=== PATIENT | male | born 1960 | race Caucasian/White ===

== ENCOUNTER 2017-09-13 16:12 | Emergency (ER) | payer MEDICAID ==
[2017-09-13] MEDS: ONDANSETRON 4 MG INJ IV ×3 (17:07→18:50)
[2017-09-13] MEDS: SOD CHLORIDE 0.9% 500 ML IV (17:08)
[2017-09-13 17:10] LABS: ADD MAN DIFF? NO
[2017-09-13 17:32] LABS: ALANINE AMINOTRANSFERASE 48 IU/L (13-69); ALBUMIN 2.8 g/dl (3.3-4.9); ALKALINE PHOSPHATASE 178 IU/L (42-121); ANION GAP 18 (8-16); ASPARTATE AMINO TRANSFERASE 60 IU/L (15-46); BILIRUBIN,INDIRECT 1.1 mg/dl (0-1.1); BILIRUBIN,TOTAL 1.1 mg/dl (0.2-1.3); BLOOD UREA NITROGEN 13 mg/dl (7-20); CARBON DIOXIDE 22 mmol/L (21-31); CHLORIDE 96 mmol/L (97-110); CREATININE 0.82 mg/dl (0.61-1.24); GLUCOSE 347 mg/dl (70-220); LIPASE 22 U/L (23-300); POTASSIUM 3.6 mmol/L (3.5-5.1); SODIUM 132 mmol/L (135-144); TOTAL PROTEIN 6.8 g/dl (6.1-8.1)
[2017-09-13 17:50] LABS: BASOPHIL # 0.1 10^3/ul (0.0-0.1); BASOPHILS % 1.1 % (0.0-2.0); EOSINOPHILS # 0.2 10^3/ul (0.0-0.5); EOSINOPHILS % 2.3 % (0.0-7.0); HEMATOCRIT 34.7 % (42.0-52.0); HEMOGLOBIN 12.2 g/dl (14.0-18.0); LYMPHOCYTES # 0.7 10^3/ul (0.8-2.9); LYMPHOCYTES % 11.1 % (15.0-51.0); MEAN CORPUSCULAR HEMOGLOBIN 33.3 pg (29.0-33.0); MEAN CORPUSCULAR HGB CONC 35.2 g/dl (32.0-37.0); MEAN CORPUSCULAR VOLUME 94.8 fl (82.0-101.0); MONOCYTE # 0.9 10^3/ul (0.3-0.9); MONOCYTES % 13.4 % (0.0-11.0); NEUTROPHIL # 4.7 10^3/ul (1.6-7.5); NEUTROPHILS % 71.9 % (39.0-77.0); PLATELET COUNT 124 10^3/UL (140-415); RED BLOOD COUNT 3.66 10^6/ul (4.70-6.10); RED CELL DISTRIBUTION WIDTH 15.7 % (11.5-14.5)
[2017-09-13 17:50] LABS: WHITE BLOOD COUNT 6.5 10^3/ul (4.8-10.8)
[2017-09-13 17:53] LABS: TROPONIN-I < 0.012 ng/ml (0.00-0.12)
[2017-09-13] MEDS: HYDROmorphONE 1 MG/ML SYG IV ×2 (18:29→19:50)
== END 2017-09-13 20:12 | disposition home or self-care (01) ==
LOC: E/R 16:12
DX: R11.2 Nausea with vomiting, unspecified (principal); Z79.4 Long term (current) use of insulin; Z98.61 Coronary angioplasty status
CPT/HCPCS: 36415; 74176; 80053; 83690; 84484; 85025; 96374; 96375; 96376; 99285-25

== ENCOUNTER 2017-11-05 10:12 | Inpatient (IN) | payer MEDICAID ==
[2017-11-05] MEDS: SOD CHLORIDE 0.9% 500 ML IV (12:25)
[2017-11-05] MEDS: ONDANSETRON 4 MG INJ IV (12:25)
[2017-11-05 12:50] LABS: ADD MAN DIFF? NO
[2017-11-05 12:54] LABS: BASOPHIL # 0.1 10^3/ul (0.0-0.1); BASOPHILS % 0.7 % (0.0-2.0); EOSINOPHILS # 0.1 10^3/ul (0.0-0.5); HEMATOCRIT 37.8 % (42.0-52.0); HEMOGLOBIN 13.2 g/dl (14.0-18.0); LYMPHOCYTES # 0.6 10^3/ul (0.8-2.9); LYMPHOCYTES % 7.7 % (15.0-51.0); MEAN CORPUSCULAR HEMOGLOBIN 33.1 pg (29.0-33.0); MEAN CORPUSCULAR HGB CONC 34.9 g/dl (32.0-37.0); MEAN CORPUSCULAR VOLUME 94.7 fl (82.0-101.0); MEAN PLATELET VOLUME 10.9 fl (7.4-10.4); MONOCYTE # 0.9 10^3/ul (0.3-0.9); MONOCYTES % 11.3 % (0.0-11.0); NEUTROPHIL # 6.5 10^3/ul (1.6-7.5); NEUTROPHILS % 78.6 % (39.0-77.0); PLATELET COUNT 144 10^3/UL (140-415); RED BLOOD COUNT 3.99 10^6/ul (4.70-6.10); RED CELL DISTRIBUTION WIDTH 14.3 % (11.5-14.5)
[2017-11-05 12:54] LABS: WHITE BLOOD COUNT 8.2 10^3/ul (4.8-10.8)
[2017-11-05 13:10] LABS: ALANINE AMINOTRANSFERASE 77 IU/L (13-69); ALBUMIN 3.3 g/dl (3.3-4.9); ALBUMIN/GLOBULIN RATIO 0.76; ALKALINE PHOSPHATASE 231 IU/L (42-121); ANION GAP 17 (8-16); ASPARTATE AMINO TRANSFERASE 124 IU/L (15-46); BILIRUBIN,TOTAL 2.3 mg/dl (0.2-1.3); BLOOD UREA NITROGEN 18 mg/dl (7-20); CARBON DIOXIDE 25 mmol/L (21-31); CHLORIDE 92 mmol/L (97-110); CREATININE 0.95 mg/dl (0.61-1.24); LIPASE 19 U/L (23-300); SODIUM 127 mmol/L (135-144); TOTAL PROTEIN 7.6 g/dl (6.1-8.1)
[2017-11-05 13:11] LABS: POTASSIUM 6.8 mmol/L (3.5-5.1)
[2017-11-05 13:12] LABS: GLUCOSE 441 mg/dl (70-220)
[2017-11-05 13:25] LABS: TROPONIN-I < 0.012 ng/ml (0.00-0.12)
[2017-11-05] MEDS ORDERED: DEXTROSE 50% 50 ML SYRINGE IV ×3 (13:30→15:00)
[2017-11-05] MEDS: morphine 4 MG/ML VIAL IV (13:38)
[2017-11-05 13:39] LABS: AMMONIA 81 umol/l (9-30)
[2017-11-05] MEDS: INSULIN REGULAR, HUMAN 100 UNIT/1 ML 3ML VIAL IVP (13:45)
[2017-11-05] MEDS: NA BICARBONATE 8.4% 50 ML SYG IV (13:48)
[2017-11-05] MEDS: NA POLYST SULFON 15 GM/60 ML BTL PO (13:51)
[2017-11-05] MEDS ORDERED: ONDANSETRON 4 MG INJ IV (14:00)
[2017-11-05] MEDS ORDERED: ACETAMINOPHEN 325 MG TAB PO ×2 (14:00→15:00)
[2017-11-05] MEDS: ALBUTEROL 0.5% (NEB) 2.5 MG/0.5 ML AMP INH (14:06)
[2017-11-05] MEDS ORDERED: GLUCOSE GEL 15 GRAM TUBE BUCCAL (15:00)
[2017-11-05] MEDS ORDERED: NACL 0.9% 3 ML SYG IV (15:00)
[2017-11-05] MEDS ORDERED: GLUCOSE GEL 15 GRAM TUBE PO ×2 (15:00)
[2017-11-05] MEDS: METOCLOPRAMIDE 5 MG TAB PO ×3 (15:00→20:37)
[2017-11-05] MEDS: traMADol 50 MG TAB PO ×2 (15:00→22:00)
[2017-11-05] MEDS ORDERED: DOCUSATE SODIUM 100 MG CAP PO (15:00)
[2017-11-05] MEDS ORDERED: MAGNESIUM HYDROXIDE 30ML CUP PO (15:00)
[2017-11-05] MEDS ORDERED: GLUCAGON 1 MG INJ IM (15:00)
[2017-11-05 15:43] LABS: HEMOGLOBIN A1C 8.1 % (0-5.9)
[2017-11-05 16:16] LABS: ALANINE AMINOTRANSFERASE 71 IU/L (13-69); ALBUMIN 2.6 g/dl (3.3-4.9); ALBUMIN/GLOBULIN RATIO 0.68; ALKALINE PHOSPHATASE 217 IU/L (42-121); ANION GAP 16 (8-16); ASPARTATE AMINO TRANSFERASE 93 IU/L (15-46); BILIRUBIN,INDIRECT 1.8 mg/dl (0-1.1); BILIRUBIN,TOTAL 1.8 mg/dl (0.2-1.3); BLOOD UREA NITROGEN 16 mg/dl (7-20); CALCIUM 8.6 mg/dl (8.4-10.2); CARBON DIOXIDE 23 mmol/L (21-31); CHLORIDE 96 mmol/L (97-110); CREATININE 0.86 mg/dl (0.61-1.24); GLUCOSE 274 mg/dl (70-220); POTASSIUM 4.5 mmol/L (3.5-5.1); SODIUM 130 mmol/L (135-144); TOTAL PROTEIN 6.4 g/dl (6.1-8.1)
[2017-11-05] MEDS: DICYCLOMINE 10 MG CAP PO ×2 (17:46→21:00)
[2017-11-05] MEDS: CALCIUM ACETATE 667 MG CAP PO (18:07)
[2017-11-05] MEDS: LACTULOSE 30ML CUP PO (20:37)
[2017-11-05] MEDS: MIDODRINE 5 MG TAB PO (20:37)
[2017-11-05] MEDS: HYDROmorphONE 4 MG TAB PO (22:07)
[2017-11-05] MEDS: INSULIN GLARGINE [LANtus] 3 ML PEN SC (22:26)
[2017-11-05] MEDS: INSULIN ASPART [NOVOLOG] 3 ML PEN SC (22:27)
[2017-11-05] MEDS: LORAZEPAM 2 MG INJ IV (22:29)
[2017-11-06] MEDS: traMADol 50 MG TAB PO ×2 (06:14→13:38)
[2017-11-06] MEDS: PANTOPRAZOLE (EC) 40 MG TAB PO (06:14)
[2017-11-06 08:06] LABS: ADD MAN DIFF? NO
[2017-11-06] MEDS: LACTULOSE 30ML CUP PO ×3 (08:21→20:10)
[2017-11-06 08:22] LABS: MAGNESIUM 1.9 mg/dl (1.7-2.5)
[2017-11-06] MEDS: CLOPIDOGREL 75 MG TAB PO (08:22)
[2017-11-06] MEDS: METOCLOPRAMIDE 5 MG TAB PO ×4 (08:22→20:11)
[2017-11-06] MEDS: EZETIMIBE 10 MG TAB PO (08:22)
[2017-11-06] MEDS: CYANOCOBALAMIN 500 MCG TAB PO (08:23)
[2017-11-06] MEDS: SPIRONOLACTONE 25 MG TAB PO ×2 (08:23→20:10)
[2017-11-06] MEDS: DICYCLOMINE 10 MG CAP PO ×4 (08:23→20:10)
[2017-11-06] MEDS: CALCIUM ACETATE 667 MG CAP PO ×3 (08:23→17:28)
[2017-11-06 08:27] LABS: BASOPHIL # 0.1 10^3/ul (0.0-0.1); BASOPHILS % 1.5 % (0.0-2.0); EOSINOPHILS # 0.3 10^3/ul (0.0-0.5); EOSINOPHILS % 3.7 % (0.0-7.0); HEMATOCRIT 34.3 % (42.0-52.0); HEMOGLOBIN 12.2 g/dl (14.0-18.0); LYMPHOCYTES # 0.8 10^3/ul (0.8-2.9); LYMPHOCYTES % 12.2 % (15.0-51.0); MEAN CORPUSCULAR HEMOGLOBIN 33.7 pg (29.0-33.0); MEAN CORPUSCULAR HGB CONC 35.6 g/dl (32.0-37.0); MEAN CORPUSCULAR VOLUME 94.8 fl (82.0-101.0); MEAN PLATELET VOLUME 10.8 fl (7.4-10.4); MONOCYTES % 14.8 % (0.0-11.0); NEUTROPHIL # 4.6 10^3/ul (1.6-7.5); NEUTROPHILS % 67.2 % (39.0-77.0); PLATELET COUNT 107 10^3/UL (140-415); RED BLOOD COUNT 3.62 10^6/ul (4.70-6.10); RED CELL DISTRIBUTION WIDTH 14.1 % (11.5-14.5)
[2017-11-06 08:27] LABS: WHITE BLOOD COUNT 6.8 10^3/ul (4.8-10.8)
[2017-11-06] MEDS: INSULIN ASPART [NOVOLOG] 3 ML PEN SC ×4 (08:27→20:25)
[2017-11-06] MEDS: MIDODRINE 5 MG TAB PO ×3 (08:29→20:11)
[2017-11-06 15:44] LABS: AMMONIA 107 umol/l (9-30)
[2017-11-06] MEDS: INSULIN GLARGINE [LANtus] 3 ML PEN SC (20:25)
[2017-11-07] MEDS: traMADol 50 MG TAB PO ×3 (00:17→14:00)
[2017-11-07] MEDS: LORAZEPAM 2 MG INJ IV (03:59)
[2017-11-07] MEDS: PANTOPRAZOLE (EC) 40 MG TAB PO (06:13)
[2017-11-07 06:16] LABS: ADD MAN DIFF? NO
[2017-11-07 06:20] LABS: ABNORMAL IP MESSAGE 1; BASOPHIL # 0.1 10^3/ul (0.0-0.1); BASOPHILS % 1.1 % (0.0-2.0); EOSINOPHILS # 0.2 10^3/ul (0.0-0.5); EOSINOPHILS % 3.1 % (0.0-7.0); HEMATOCRIT 32.5 % (42.0-52.0); HEMOGLOBIN 11.7 g/dl (14.0-18.0); MEAN CORPUSCULAR HEMOGLOBIN 33.3 pg (29.0-33.0); MEAN CORPUSCULAR VOLUME 92.6 fl (82.0-101.0); MEAN PLATELET VOLUME 10.7 fl (7.4-10.4); MONOCYTE # 0.8 10^3/ul (0.3-0.9); MONOCYTES % 11.9 % (0.0-11.0); NEUTROPHIL # 4.9 10^3/ul (1.6-7.5); NEUTROPHILS % 69.3 % (39.0-77.0); PLATELET COUNT 96 10^3/UL (140-415); POSITIVE DIFF @See below; RED BLOOD COUNT 3.51 10^6/ul (4.70-6.10); RED CELL DISTRIBUTION WIDTH 13.9 % (11.5-14.5)
[2017-11-07 06:20] LABS: WHITE BLOOD COUNT 7.1 10^3/ul (4.8-10.8)
[2017-11-07 06:54] LABS: ALANINE AMINOTRANSFERASE 57 IU/L (13-69); ALBUMIN 2.6 g/dl (3.3-4.9); ALBUMIN/GLOBULIN RATIO 0.72; ALKALINE PHOSPHATASE 215 IU/L (42-121); ASPARTATE AMINO TRANSFERASE 75 IU/L (15-46); BILIRUBIN,INDIRECT 0.9 mg/dl (0-1.1); BILIRUBIN,TOTAL 0.9 mg/dl (0.2-1.3); BLOOD UREA NITROGEN 16 mg/dl (7-20); CALCIUM 8.8 mg/dl (8.4-10.2); CARBON DIOXIDE 26 mmol/L (21-31); CHLORIDE 97 mmol/L (97-110); CREATININE 0.77 mg/dl (0.61-1.24); GLUCOSE 273 mg/dl (70-220); SODIUM 130 mmol/L (135-144); TOTAL PROTEIN 6.2 g/dl (6.1-8.1)
[2017-11-07 07:50] LABS: ANION GAP 12 (8-16)
[2017-11-07 07:58] LABS: POTASSIUM 4.6 mmol/L (3.5-5.1)
[2017-11-07] MEDS: EZETIMIBE 10 MG TAB PO (08:28)
[2017-11-07] MEDS: METOCLOPRAMIDE 5 MG TAB PO ×4 (08:28→21:21)
[2017-11-07] MEDS: CLOPIDOGREL 75 MG TAB PO (08:28)
[2017-11-07] MEDS: SPIRONOLACTONE 25 MG TAB PO ×2 (08:29→21:21)
[2017-11-07] MEDS: CALCIUM ACETATE 667 MG CAP PO ×3 (08:29→17:22)
[2017-11-07] MEDS: DICYCLOMINE 10 MG CAP PO ×4 (08:29→21:20)
[2017-11-07] MEDS: CYANOCOBALAMIN 500 MCG TAB PO (08:29)
[2017-11-07] MEDS: LACTULOSE 30ML CUP PO ×3 (08:30→17:23)
[2017-11-07] MEDS: MIDODRINE 5 MG TAB PO ×3 (08:30→21:21)
[2017-11-07] MEDS: INSULIN ASPART [NOVOLOG] 3 ML PEN SC ×6 (08:40→21:39)
[2017-11-07] MEDS: RIFAXIMIN 550 MG TAB PO ×2 (12:14→21:20)
[2017-11-07] MEDS: ACETAMINOPHEN 1000MG/100ML IV 100 ML IVPB (12:18)
[2017-11-07 12:59] LABS: AMMONIA 242 umol/l (9-30)
[2017-11-07] MEDS: DEXTROSE 5%-0.45% NACL 1,000 ML IV (16:52)
[2017-11-07 19:35] LABS: ADD UMIC YES; UR ASCORBIC ACID NEGATIVE (NEGATIVE); UR BILIRUBIN (Dip) NEGATIVE (NEGATIVE); UR BLOOD (Dip) 2+ mg/dL (NEGATIVE); UR CLARITY CLEAR (CLEAR); UR COLOR YELLOW (YELLOW); UR GLUCOSE (Dip) 2+ mg/dL (NEGATIVE); UR KETONES (Dip) NEGATIVE (NEGATIVE); UR LEUKOCYTE ESTERASE (Dip) NEGATIVE Leu/ul (NEGATIVE); UR NITRITE (Dip) NEGATIVE (NEGATIVE); UR RBC 4 /HPF (0-5); UR SPECIFIC GRAVITY (Dip) 1.011 (1.003-1.030); UR TOTAL PROTEIN (Dip) NEGATIVE (NEGATIVE); UR UROBILINOGEN (Dip) 2+ mg/dL (NEGATIVE); UR WBC 2 /HPF (0-5)
[2017-11-07] MEDS: INSULIN GLARGINE [LANtus] 3 ML PEN SC (21:38)
[2017-11-08] MEDS: traMADol 50 MG TAB PO ×4 (01:19→21:48)
[2017-11-08] MEDS: LACTULOSE 30ML CUP PO ×4 (01:19→17:27)
[2017-11-08] MEDS: LORAZEPAM 2 MG INJ IV (03:32)
[2017-11-08] MEDS: PANTOPRAZOLE (EC) 40 MG TAB PO (06:33)
[2017-11-08 07:53] LABS: ADD MAN DIFF? NO
[2017-11-08 07:55] LABS: WHITE BLOOD COUNT 6.8 10^3/ul (4.8-10.8)
[2017-11-08 07:55] LABS: ABNORMAL IP MESSAGE 1; BASOPHIL # 0.1 10^3/ul (0.0-0.1); EOSINOPHILS # 0.2 10^3/ul (0.0-0.5); EOSINOPHILS % 2.5 % (0.0-7.0); HEMATOCRIT 35.1 % (42.0-52.0); HEMOGLOBIN 12.9 g/dl (14.0-18.0); LYMPHOCYTES # 0.8 10^3/ul (0.8-2.9); LYMPHOCYTES % 11.5 % (15.0-51.0); MEAN CORPUSCULAR HEMOGLOBIN 33.9 pg (29.0-33.0); MEAN CORPUSCULAR HGB CONC 36.8 g/dl (32.0-37.0); MEAN CORPUSCULAR VOLUME 92.1 fl (82.0-101.0); MEAN PLATELET VOLUME 10.9 fl (7.4-10.4); MONOCYTE # 0.7 10^3/ul (0.3-0.9); MONOCYTES % 10.5 % (0.0-11.0); NEUTROPHILS % 74.1 % (39.0-77.0); PLATELET COUNT 96 10^3/UL (140-415); POSITIVE DIFF @See below; RED BLOOD COUNT 3.81 10^6/ul (4.70-6.10); RED CELL DISTRIBUTION WIDTH 14.2 % (11.5-14.5)
[2017-11-08 08:12] LABS: AMMONIA 175 umol/l (9-30)
[2017-11-08 08:21] LABS: ANION GAP 16 (8-16); BLOOD UREA NITROGEN 11 mg/dl (7-20); CALCIUM 9.4 mg/dl (8.4-10.2); CARBON DIOXIDE 18 mmol/L (21-31); CHLORIDE 105 mmol/L (97-110); CREATININE 0.55 mg/dl (0.61-1.24); GLUCOSE 181 mg/dl (70-220); MAGNESIUM 1.7 mg/dl (1.7-2.5); PHOSPHORUS 3.2 mg/dl (2.5-4.9); POTASSIUM 4.8 mmol/L (3.5-5.1); SODIUM 134 mmol/L (135-144)
[2017-11-08] MEDS: RIFAXIMIN 550 MG TAB PO ×2 (08:47→21:01)
[2017-11-08] MEDS: CLOPIDOGREL 75 MG TAB PO (08:47)
[2017-11-08] MEDS: DICYCLOMINE 10 MG CAP PO ×4 (08:47→21:04)
[2017-11-08] MEDS: EZETIMIBE 10 MG TAB PO (08:47)
[2017-11-08] MEDS: METOCLOPRAMIDE 5 MG TAB PO ×4 (08:48→21:01)
[2017-11-08] MEDS: SPIRONOLACTONE 25 MG TAB PO ×2 (08:48→21:00)
[2017-11-08] MEDS: MIDODRINE 5 MG TAB PO ×3 (08:48→21:01)
[2017-11-08] MEDS: CALCIUM ACETATE 667 MG CAP PO ×3 (08:48→17:28)
[2017-11-08] MEDS: INSULIN ASPART [NOVOLOG] 3 ML PEN SC ×6 (09:03→21:17)
[2017-11-08] MEDS: CYANOCOBALAMIN 500 MCG TAB PO (09:04)
[2017-11-08] MEDS: DEXTROSE 5%-0.45% NACL 1,000 ML IV ×2 (12:00→17:28)
[2017-11-08] MEDS: INSULIN GLARGINE [LANtus] 3 ML PEN SC (21:16)
[2017-11-09] MEDS: LACTULOSE 30ML CUP PO ×6 (00:11→23:58)
[2017-11-09] MEDS: ONDANSETRON 4 MG INJ IV (01:02)
[2017-11-09] MEDS: OCTREOTIDE 500 MCG in DEXTROSE 5% 49 ML IV ×2 (05:33→23:14)
[2017-11-09] MEDS: PANTOPRAZOLE IV 80 MG in SOD CHLORIDE 0.9% 100 ML IVPB (05:40)
[2017-11-09] MEDS: traMADol 50 MG TAB PO ×3 (06:00→22:00)
[2017-11-09] MEDS: PANTOPRAZOLE IV 80 MG in SOD CHLORIDE 0.9% 100 ML IV ×3 (06:15→23:14)
[2017-11-09 07:01] LABS: ADD MAN DIFF? NO
[2017-11-09 07:33] LABS: BASOPHIL # 0.1 10^3/ul (0.0-0.1); BASOPHILS % 0.4 % (0.0-2.0); EOSINOPHILS % 0.3 % (0.0-7.0); HEMATOCRIT 36.9 % (42.0-52.0); HEMOGLOBIN 13.5 g/dl (14.0-18.0); LYMPHOCYTES # 0.9 10^3/ul (0.8-2.9); LYMPHOCYTES % 5.7 % (15.0-51.0); MEAN CORPUSCULAR HEMOGLOBIN 33.4 pg (29.0-33.0); MEAN CORPUSCULAR HGB CONC 36.6 g/dl (32.0-37.0); MEAN CORPUSCULAR VOLUME 91.3 fl (82.0-101.0); MEAN PLATELET VOLUME 10.9 fl (7.4-10.4); MONOCYTES % 6.3 % (0.0-11.0); NEUTROPHILS % 86.6 % (39.0-77.0); PLATELET COUNT 141 10^3/UL (140-415); RED BLOOD COUNT 4.04 10^6/ul (4.70-6.10); RED CELL DISTRIBUTION WIDTH 14.3 % (11.5-14.5)
[2017-11-09 07:35] LABS: ANION GAP 17 (8-16); BLOOD UREA NITROGEN 12 mg/dl (7-20); CARBON DIOXIDE 14 mmol/L (21-31); CHLORIDE 108 mmol/L (97-110); CREATININE 0.66 mg/dl (0.61-1.24); GLUCOSE 237 mg/dl (70-220); MAGNESIUM 1.5 mg/dl (1.7-2.5); PHOSPHORUS 2.8 mg/dl (2.5-4.9); POTASSIUM 4.8 mmol/L (3.5-5.1); SODIUM 134 mmol/L (135-144)
[2017-11-09] MEDS: CALCIUM ACETATE 667 MG CAP PO ×3 (07:55→16:59)
[2017-11-09] MEDS: INSULIN ASPART [NOVOLOG] 3 ML PEN SC ×6 (07:55→23:59)
[2017-11-09 08:39] LABS: AMMONIA 155 umol/l (9-30)
[2017-11-09] MEDS: CYANOCOBALAMIN 500 MCG TAB PO (09:00)
[2017-11-09] MEDS: SPIRONOLACTONE 25 MG TAB PO ×2 (09:00→21:00)
[2017-11-09] MEDS: METOCLOPRAMIDE 5 MG TAB PO ×4 (10:00→21:00)
[2017-11-09] MEDS: CLOPIDOGREL 75 MG TAB PO (10:00)
[2017-11-09] MEDS: EZETIMIBE 10 MG TAB PO (10:00)
[2017-11-09] MEDS: DICYCLOMINE 10 MG CAP PO ×4 (10:00→21:00)
[2017-11-09] MEDS: RIFAXIMIN 550 MG TAB PO ×2 (10:00→21:00)
[2017-11-09] MEDS: MIDODRINE 5 MG TAB PO ×3 (10:00→21:00)
[2017-11-09] MEDS ORDERED: LACTULOSE 30ML CUP PR (10:30)
[2017-11-09] MEDS: CEFTRIAXONE 1 GM/50 ML (PMX) 50 ML IVPB (13:15)
[2017-11-09] MEDS: LACTULOSE 30ML CUP PR ×3 (13:15→23:58)
[2017-11-09 13:52] LABS: HEMATOCRIT 37.9 % (42.0-52.0); HEMOGLOBIN 13.8 g/dl (14.0-18.0)
[2017-11-09] MEDS: SOD CHLORIDE 0.9% 1,000 ML IV ×2 (14:10→23:58)
[2017-11-09] MEDS: MAGNESIUM SULFATE 2 GM/50 ML 50 ML IVPB (14:10)
[2017-11-09 15:44] LABS: HEMATOCRIT 37.7 % (42.0-52.0); HEMOGLOBIN 13.6 g/dl (14.0-18.0)
[2017-11-09] MEDS: FENTAnyl 50 MCG/ML VIAL (15:53)
[2017-11-09] MEDS: PROPOFOL 20 ML (15:53)
[2017-11-09 15:56] LABS: INR 1.37; PROTIME 17.1 Sec (11.9-14.9); PT RATIO 1.3
[2017-11-09] MEDS ORDERED: ONDANSETRON 4 MG INJ IV (16:00)
[2017-11-09] MEDS ORDERED: PHYTONADIONE 10 MG/ML INJ SC (17:00)
[2017-11-09] MEDS: PHYTONADIONE 10 MG/ML INJ SC (18:50)
[2017-11-09] MEDS: INSULIN GLARGINE [LANtus] 3 ML PEN SC (21:00)
[2017-11-10 01:09] LABS: HEMATOCRIT 37.1 % (42.0-52.0); HEMOGLOBIN 13.4 g/dl (14.0-18.0)
[2017-11-10 05:25] LABS: ADD MAN DIFF? NO
[2017-11-10 05:28] LABS: WHITE BLOOD COUNT 18.8 10^3/ul (4.8-10.8)
[2017-11-10 05:28] LABS: BASOPHIL # 0.1 10^3/ul (0.0-0.1); BASOPHILS % 0.3 % (0.0-2.0); EOSINOPHILS # 0.1 10^3/ul (0.0-0.5); EOSINOPHILS % 0.5 % (0.0-7.0); HEMATOCRIT 35.4 % (42.0-52.0); HEMOGLOBIN 12.8 g/dl (14.0-18.0); LYMPHOCYTES % 5.1 % (15.0-51.0); MEAN CORPUSCULAR HEMOGLOBIN 33.2 pg (29.0-33.0); MEAN CORPUSCULAR HGB CONC 36.2 g/dl (32.0-37.0); MEAN CORPUSCULAR VOLUME 91.7 fl (82.0-101.0); MEAN PLATELET VOLUME 10.4 fl (7.4-10.4); MONOCYTE # 1.3 10^3/ul (0.3-0.9); NEUTROPHIL # 16.2 10^3/ul (1.6-7.5); NEUTROPHILS % 86.2 % (39.0-77.0); PLATELET COUNT 127 10^3/UL (140-415); RED BLOOD COUNT 3.86 10^6/ul (4.70-6.10); RED CELL DISTRIBUTION WIDTH 14.7 % (11.5-14.5)
[2017-11-10] MEDS: LACTULOSE 30ML CUP PO (05:42)
[2017-11-10] MEDS: LACTULOSE 30ML CUP PR ×3 (05:42→18:03)
[2017-11-10] MEDS: traMADol 50 MG TAB PO ×3 (05:42→22:00)
[2017-11-10 05:51] LABS: AMMONIA 110 umol/l (9-30)
[2017-11-10 05:51] LABS: ANION GAP 15 (8-16); BLOOD UREA NITROGEN 20 mg/dl (7-20); CALCIUM 9.6 mg/dl (8.4-10.2); CARBON DIOXIDE 15 mmol/L (21-31); CHLORIDE 113 mmol/L (97-110); CREATININE 0.78 mg/dl (0.61-1.24); GLUCOSE 222 mg/dl (70-220); MAGNESIUM 1.6 mg/dl (1.7-2.5); PHOSPHORUS 3.3 mg/dl (2.5-4.9); POTASSIUM 4.2 mmol/L (3.5-5.1); SODIUM 139 mmol/L (135-144)
[2017-11-10] MEDS: CALCIUM ACETATE 667 MG CAP PO ×3 (07:35→17:35)
[2017-11-10] MEDS: OCTREOTIDE 500 MCG in DEXTROSE 5% 49 ML IV (08:05)
[2017-11-10] MEDS: DICYCLOMINE 10 MG CAP PO ×4 (08:53→21:00)
[2017-11-10] MEDS: SPIRONOLACTONE 25 MG TAB PO ×2 (08:53→21:00)
[2017-11-10] MEDS: CLOPIDOGREL 75 MG TAB PO (08:53)
[2017-11-10] MEDS: RIFAXIMIN 550 MG TAB PO ×2 (08:54→21:00)
[2017-11-10] MEDS: METOCLOPRAMIDE 5 MG TAB PO ×4 (08:54→21:00)
[2017-11-10] MEDS: EZETIMIBE 10 MG TAB PO (08:54)
[2017-11-10] MEDS: CYANOCOBALAMIN 500 MCG TAB PO (08:54)
[2017-11-10] MEDS: MIDODRINE 5 MG TAB PO ×3 (08:54→21:00)
[2017-11-10] MEDS: INSULIN ASPART [NOVOLOG] 3 ML PEN SC ×3 (09:29→18:07)
[2017-11-10] MEDS: SOD CHLORIDE 0.9% 1,000 ML IV ×2 (09:38→20:08)
[2017-11-10] MEDS: PANTOPRAZOLE IV 80 MG in SOD CHLORIDE 0.9% 100 ML IV ×2 (09:38→18:04)
[2017-11-10] MEDS: MAGNESIUM SULFATE 2 GM/50 ML 50 ML IVPB (12:10)
[2017-11-10] MEDS: CEFTRIAXONE 1 GM/50 ML (PMX) 50 ML IVPB (13:18)
[2017-11-10] MEDS: morphine 2 MG INJ IV (14:08)
[2017-11-10] MEDS ORDERED: DEXTROSE 50% 50 ML SYRINGE IV ×2 (18:30)
[2017-11-10] MEDS: ACCU-CHEK XX ×5 (19:00→23:23)
[2017-11-10] MEDS: INSULIN HUMAN REGULAR 100 UNIT in SOD CHLORIDE 0.9% 99 ML IV (20:14)
[2017-11-10] MEDS: PETROLATUM 28.35 GM JELLY TOP (21:00)
[2017-11-11] MEDS: ACCU-CHEK XX ×24 (01:00→23:17)
[2017-11-11] MEDS ORDERED: ACCU-CHEK XX (02:00)
[2017-11-11] MEDS: LACTULOSE 30ML CUP PR ×5 (02:44→19:30)
[2017-11-11] MEDS: traMADol 50 MG TAB PO ×3 (03:12→22:00)
[2017-11-11] MEDS: SOD CHLORIDE 0.9% 1,000 ML IV ×2 (05:19→15:14)
[2017-11-11] MEDS: PANTOPRAZOLE IV 80 MG in SOD CHLORIDE 0.9% 100 ML IV ×2 (05:19→15:33)
[2017-11-11 05:56] LABS: ADD MAN DIFF? NO
[2017-11-11 06:02] LABS: ABNORMAL IP MESSAGE 1; BASOPHILS % 0.1 % (0.0-2.0); EOSINOPHILS # 0.1 10^3/ul (0.0-0.5); EOSINOPHILS % 0.9 % (0.0-7.0); HEMATOCRIT 30.2 % (42.0-52.0); HEMOGLOBIN 10.7 g/dl (14.0-18.0); LYMPHOCYTES # 0.7 10^3/ul (0.8-2.9); LYMPHOCYTES % 5.2 % (15.0-51.0); MEAN CORPUSCULAR HEMOGLOBIN 33.5 pg (29.0-33.0); MEAN CORPUSCULAR HGB CONC 35.4 g/dl (32.0-37.0); MEAN CORPUSCULAR VOLUME 94.7 fl (82.0-101.0); MEAN PLATELET VOLUME 10.6 fl (7.4-10.4); MONOCYTE # 1.2 10^3/ul (0.3-0.9); MONOCYTES % 8.3 % (0.0-11.0); NEUTROPHIL # 11.9 10^3/ul (1.6-7.5); NEUTROPHILS % 84.5 % (39.0-77.0); PLATELET COUNT 97 10^3/UL (140-415); POSITIVE DIFF @See below; RED BLOOD COUNT 3.19 10^6/ul (4.70-6.10); RED CELL DISTRIBUTION WIDTH 15.1 % (11.5-14.5)
[2017-11-11 06:02] LABS: WHITE BLOOD COUNT 14.1 10^3/ul (4.8-10.8)
[2017-11-11 06:29] LABS: AMMONIA 79 umol/l (9-30)
[2017-11-11 06:33] LABS: ANION GAP 11 (8-16); BLOOD UREA NITROGEN 27 mg/dl (7-20); CARBON DIOXIDE 15 mmol/L (21-31); CHLORIDE 122 mmol/L (97-110); CREATININE 0.62 mg/dl (0.61-1.24); GLUCOSE 163 mg/dl (70-220); MAGNESIUM 2.1 mg/dl (1.7-2.5); PHOSPHORUS 2.6 mg/dl (2.5-4.9); POTASSIUM 3.9 mmol/L (3.5-5.1); SODIUM 144 mmol/L (135-144)
[2017-11-11 06:34] LABS: ALANINE AMINOTRANSFERASE 44 IU/L (13-69); ALBUMIN 2.2 g/dl (3.3-4.9); ALKALINE PHOSPHATASE 157 IU/L (42-121); ASPARTATE AMINO TRANSFERASE 37 IU/L (15-46); TOTAL PROTEIN 5.5 g/dl (6.1-8.1)
[2017-11-11] MEDS: CALCIUM ACETATE 667 MG CAP PO ×3 (07:35→17:35)
[2017-11-11] MEDS: DICYCLOMINE 10 MG CAP PO ×4 (09:00→21:00)
[2017-11-11] MEDS: RIFAXIMIN 550 MG TAB PO ×2 (09:00→21:00)
[2017-11-11] MEDS: EZETIMIBE 10 MG TAB PO (09:00)
[2017-11-11] MEDS: METOCLOPRAMIDE 5 MG TAB PO ×4 (09:00→21:00)
[2017-11-11] MEDS: MIDODRINE 5 MG TAB PO ×3 (09:00→21:00)
[2017-11-11] MEDS: CYANOCOBALAMIN 500 MCG TAB PO (09:00)
[2017-11-11] MEDS: SPIRONOLACTONE 25 MG TAB PO ×2 (09:00→21:00)
[2017-11-11] MEDS: METOCLOPRAMIDE 10 MG INJ IV ×4 (09:39→21:38)
[2017-11-11 13:12] LABS: HEMATOCRIT 28.9 % (42.0-52.0); HEMOGLOBIN 10.3 g/dl (14.0-18.0)
[2017-11-11] MEDS: PETROLATUM 28.35 GM JELLY TOP ×2 (13:12→22:05)
[2017-11-11] MEDS: CEFTRIAXONE 1 GM/50 ML (PMX) 50 ML IVPB (13:31)
[2017-11-11] MEDS: DEXTROSE 5%-0.45% NACL 1,000 ML IV (16:02)
[2017-11-11] MEDS: PANTOPRAZOLE 40 MG INJ IV (17:57)
[2017-11-11 18:06] LABS: HEMATOCRIT 31.8 % (42.0-52.0); HEMOGLOBIN 11.4 g/dl (14.0-18.0)
[2017-11-11] MEDS: morphine 2 MG INJ IV (20:36)
[2017-11-11] MEDS: LORAZEPAM 2 MG INJ IV (23:52)
[2017-11-12 00:42] LABS: HEMATOCRIT 28.8 % (42.0-52.0); HEMOGLOBIN 10.1 g/dl (14.0-18.0)
[2017-11-12] MEDS: ACCU-CHEK XX ×14 (01:17→13:10)
[2017-11-12] MEDS: DEXTROSE 5%-0.45% NACL 1,000 ML IV ×2 (02:05→11:13)
[2017-11-12] MEDS: morphine 2 MG INJ IV (02:37)
[2017-11-12] MEDS: PANTOPRAZOLE 40 MG INJ IV ×2 (05:13→17:27)
[2017-11-12] MEDS: traMADol 50 MG TAB PO ×3 (05:54→22:25)
[2017-11-12 06:03] LABS: ADD MAN DIFF? NO
[2017-11-12] MEDS: LACTULOSE 30ML CUP PR ×2 (06:30)
[2017-11-12 06:35] LABS: AMMONIA 80 umol/l (9-30)
[2017-11-12 06:51] LABS: BLOOD UREA NITROGEN 19 mg/dl (7-20); CALCIUM 8.8 mg/dl (8.4-10.2); CARBON DIOXIDE 15 mmol/L (21-31); CHLORIDE 120 mmol/L (97-110); CREATININE 0.56 mg/dl (0.61-1.24); GLUCOSE 125 mg/dl (70-220); MAGNESIUM 1.8 mg/dl (1.7-2.5); PHOSPHORUS 2.4 mg/dl (2.5-4.9); SODIUM 144 mmol/L (135-144)
[2017-11-12 07:13] LABS: WHITE BLOOD COUNT 6.7 10^3/ul (4.8-10.8)
[2017-11-12 07:13] LABS: ABNORMAL IP MESSAGE 1; BASOPHILS % 0.6 % (0.0-2.0); EOSINOPHILS # 0.4 10^3/ul (0.0-0.5); EOSINOPHILS % 6.4 % (0.0-7.0); HEMATOCRIT 29.4 % (42.0-52.0); HEMOGLOBIN 10.3 g/dl (14.0-18.0); LYMPHOCYTES # 0.8 10^3/ul (0.8-2.9); LYMPHOCYTES % 11.8 % (15.0-51.0); MEAN PLATELET VOLUME 10.8 fl (7.4-10.4); MONOCYTE # 0.7 10^3/ul (0.3-0.9); MONOCYTES % 11.1 % (0.0-11.0); NEUTROPHIL # 4.7 10^3/ul (1.6-7.5); NEUTROPHILS % 69.5 % (39.0-77.0); PLATELET COUNT 80 10^3/UL (140-415); POSITIVE DIFF @See below; RED BLOOD COUNT 3.03 10^6/ul (4.70-6.10); RED CELL DISTRIBUTION WIDTH 15.1 % (11.5-14.5)
[2017-11-12 07:15] LABS: ANION GAP 13 (8-16)
[2017-11-12] MEDS: CALCIUM ACETATE 667 MG CAP PO ×3 (07:35→17:04)
[2017-11-12 07:36] LABS: POTASSIUM 3.5 mmol/L (3.5-5.1)
[2017-11-12] MEDS: DICYCLOMINE 10 MG CAP PO ×4 (08:05→20:51)
[2017-11-12] MEDS: METOCLOPRAMIDE 10 MG INJ IV ×4 (08:05→20:48)
[2017-11-12] MEDS: MIDODRINE 5 MG TAB PO ×3 (08:05→20:48)
[2017-11-12] MEDS: CYANOCOBALAMIN 500 MCG TAB PO (08:05)
[2017-11-12] MEDS: METOCLOPRAMIDE 5 MG TAB PO ×4 (08:05→21:00)
[2017-11-12] MEDS: RIFAXIMIN 550 MG TAB PO ×2 (08:05→20:48)
[2017-11-12] MEDS: SPIRONOLACTONE 25 MG TAB PO ×2 (08:05→20:48)
[2017-11-12] MEDS: PETROLATUM 28.35 GM JELLY TOP ×2 (08:06→21:03)
[2017-11-12] MEDS: EZETIMIBE 10 MG TAB PO (08:06)
[2017-11-12] MEDS: LACTULOSE 30ML CUP PO ×2 (12:02→17:27)
[2017-11-12] MEDS: CEFTRIAXONE 1 GM/50 ML (PMX) 50 ML IVPB (13:13)
[2017-11-12] MEDS ORDERED: GLUCAGON 1 MG INJ IM (14:00)
[2017-11-12] MEDS ORDERED: GLUCOSE GEL 15 GRAM TUBE PO ×2 (14:00)
[2017-11-12] MEDS ORDERED: GLUCOSE GEL 15 GRAM TUBE BUCCAL (14:00)
[2017-11-12] MEDS ORDERED: DEXTROSE 50% 50 ML SYRINGE IV ×2 (14:00)
[2017-11-12] MEDS: SOD CHLORIDE 0.45% 1,000 ML IV (14:31)
[2017-11-12] MEDS: INSULIN ASPART [NOVOLOG] 3 ML PEN SC ×3 (17:03→20:40)
[2017-11-12] MEDS: INSULIN GLARGINE [LANtus] 3 ML PEN SC (20:39)
[2017-11-13] MEDS: LACTULOSE 30ML CUP PO ×4 (00:13→17:04)
[2017-11-13] MEDS: ACCU-CHEK XX (02:21)
[2017-11-13] MEDS: SOD CHLORIDE 0.45% 1,000 ML IV (05:23)
[2017-11-13 05:38] LABS: ADD MAN DIFF? NO
[2017-11-13 05:47] LABS: ABNORMAL IP MESSAGE 1; BASOPHIL # 0.1 10^3/ul (0.0-0.1); EOSINOPHILS # 0.3 10^3/ul (0.0-0.5); EOSINOPHILS % 5.1 % (0.0-7.0); HEMATOCRIT 28.8 % (42.0-52.0); HEMOGLOBIN 10.1 g/dl (14.0-18.0); LYMPHOCYTES # 0.9 10^3/ul (0.8-2.9); LYMPHOCYTES % 14.4 % (15.0-51.0); MEAN CORPUSCULAR HEMOGLOBIN 33.3 pg (29.0-33.0); MEAN CORPUSCULAR HGB CONC 35.1 g/dl (32.0-37.0); MEAN PLATELET VOLUME 10.6 fl (7.4-10.4); MONOCYTE # 0.8 10^3/ul (0.3-0.9); MONOCYTES % 12.9 % (0.0-11.0); NEUTROPHIL # 4.1 10^3/ul (1.6-7.5); NEUTROPHILS % 65.5 % (39.0-77.0); PLATELET COUNT 91 10^3/UL (140-415); POSITIVE DIFF @See below; RED BLOOD COUNT 3.03 10^6/ul (4.70-6.10); RED CELL DISTRIBUTION WIDTH 14.6 % (11.5-14.5)
[2017-11-13 05:47] LABS: WHITE BLOOD COUNT 6.3 10^3/ul (4.8-10.8)
[2017-11-13 06:06] LABS: AMMONIA 65 umol/l (9-30)
[2017-11-13] MEDS: PANTOPRAZOLE 40 MG INJ IV (06:35)
[2017-11-13] MEDS: traMADol 50 MG TAB PO ×3 (06:36→22:00)
[2017-11-13] MEDS: INSULIN ASPART [NOVOLOG] 3 ML PEN SC ×7 (07:29→20:24)
[2017-11-13] MEDS: CALCIUM ACETATE 667 MG CAP PO ×3 (07:33→16:59)
[2017-11-13] MEDS: EZETIMIBE 10 MG TAB PO (08:06)
[2017-11-13] MEDS: METOCLOPRAMIDE 10 MG INJ IV ×4 (08:06→20:25)
[2017-11-13] MEDS: CYANOCOBALAMIN 500 MCG TAB PO (08:06)
[2017-11-13] MEDS: SPIRONOLACTONE 25 MG TAB PO ×2 (08:06→20:25)
[2017-11-13] MEDS: RIFAXIMIN 550 MG TAB PO ×2 (08:06→20:25)
[2017-11-13] MEDS: DICYCLOMINE 10 MG CAP PO ×4 (08:06→20:25)
[2017-11-13] MEDS: PETROLATUM 28.35 GM JELLY TOP ×2 (08:07→20:40)
[2017-11-13] MEDS: MIDODRINE 5 MG TAB PO ×2 (12:06→16:59)
[2017-11-13] MEDS: INSULIN GLARGINE [LANtus] 3 ML PEN SC (20:28)
[2017-11-14] MEDS: LACTULOSE 30ML CUP PO ×4 (00:39→17:26)
[2017-11-14] MEDS: ACCU-CHEK XX (02:00)
[2017-11-14] MEDS: SOD CHLORIDE 0.45% 1,000 ML IV (03:14)
[2017-11-14] MEDS: morphine 2 MG INJ IV (03:18)
[2017-11-14] MEDS: PANTOPRAZOLE (EC) 40 MG TAB PO (05:50)
[2017-11-14] MEDS: traMADol 50 MG TAB PO ×2 (05:51→13:18)
[2017-11-14 07:38] LABS: ADD MAN DIFF? NO
[2017-11-14 07:54] LABS: BASOPHIL # 0.1 10^3/ul (0.0-0.1); EOSINOPHILS # 0.4 10^3/ul (0.0-0.5); EOSINOPHILS % 5.1 % (0.0-7.0); HEMATOCRIT 29.5 % (42.0-52.0); HEMOGLOBIN 10.4 g/dl (14.0-18.0); MEAN CORPUSCULAR HGB CONC 35.3 g/dl (32.0-37.0); MEAN CORPUSCULAR VOLUME 93.7 fl (82.0-101.0); MEAN PLATELET VOLUME 10.2 fl (7.4-10.4); MONOCYTE # 0.8 10^3/ul (0.3-0.9); MONOCYTES % 11.8 % (0.0-11.0); NEUTROPHIL # 4.7 10^3/ul (1.6-7.5); NEUTROPHILS % 66.8 % (39.0-77.0); PLATELET COUNT 103 10^3/UL (140-415); RED BLOOD COUNT 3.15 10^6/ul (4.70-6.10); RED CELL DISTRIBUTION WIDTH 14.6 % (11.5-14.5)
[2017-11-14] MEDS: INSULIN ASPART [NOVOLOG] 3 ML PEN SC ×7 (08:00→20:21)
[2017-11-14 08:19] LABS: AMMONIA 47 umol/l (9-30)
[2017-11-14 08:20] LABS: ANION GAP 10 (8-16); BLOOD UREA NITROGEN 6 mg/dl (7-20); CALCIUM 8.3 mg/dl (8.4-10.2); CARBON DIOXIDE 20 mmol/L (21-31); CHLORIDE 111 mmol/L (97-110); CREATININE 0.51 mg/dl (0.61-1.24); GLUCOSE 51 mg/dl (70-220); MAGNESIUM 1.5 mg/dl (1.7-2.5); PHOSPHORUS 2.5 mg/dl (2.5-4.9); POTASSIUM 3.6 mmol/L (3.5-5.1); SODIUM 137 mmol/L (135-144)
[2017-11-14] MEDS: EZETIMIBE 10 MG TAB PO (08:55)
[2017-11-14] MEDS: CALCIUM ACETATE 667 MG CAP PO ×3 (08:55→17:26)
[2017-11-14] MEDS: DICYCLOMINE 10 MG CAP PO ×4 (08:55→20:22)
[2017-11-14] MEDS: CYANOCOBALAMIN 500 MCG TAB PO (08:55)
[2017-11-14] MEDS: SPIRONOLACTONE 25 MG TAB PO ×2 (08:55→20:22)
[2017-11-14] MEDS: RIFAXIMIN 550 MG TAB PO ×2 (08:55→20:22)
[2017-11-14] MEDS: METOCLOPRAMIDE 10 MG INJ IV ×4 (08:56→20:22)
[2017-11-14] MEDS: MIDODRINE 5 MG TAB PO ×3 (09:00→17:26)
[2017-11-14] MEDS: PETROLATUM 28.35 GM JELLY TOP ×2 (09:04→20:23)
[2017-11-14] MEDS: POTASSIUM CHLORIDE (SR) 20 MEQ TAB PO (12:09)
[2017-11-14] MEDS: MAGNESIUM OXIDE 400 MG TAB PO (13:18)
[2017-11-14] MEDS: morphine LIQ (10 MG/5 ML) CUP PO (20:22)
[2017-11-14] MEDS: INSULIN GLARGINE [LANtus] 3 ML PEN SC (21:35)
[2017-11-15] MEDS: SOD CHLORIDE 0.45% 1,000 ML IV ×2 (00:40→20:59)
[2017-11-15] MEDS: traMADol 50 MG TAB PO ×4 (00:40→23:34)
[2017-11-15] MEDS: ACCU-CHEK XX (02:00)
[2017-11-15] MEDS: LACTULOSE 30ML CUP PO ×6 (06:00→23:34)
[2017-11-15] MEDS: PANTOPRAZOLE (EC) 40 MG TAB PO (06:19)
[2017-11-15 08:08] LABS: AMMONIA 73 umol/l (9-30)
[2017-11-15 08:12] LABS: ALANINE AMINOTRANSFERASE 95 IU/L (13-69); ALBUMIN/GLOBULIN RATIO 0.64; ALKALINE PHOSPHATASE 196 IU/L (42-121); ANION GAP 9 (8-16); ASPARTATE AMINO TRANSFERASE 126 IU/L (15-46); BILIRUBIN,INDIRECT 0.7 mg/dl (0-1.1); BILIRUBIN,TOTAL 0.7 mg/dl (0.2-1.3); BLOOD UREA NITROGEN 6 mg/dl (7-20); CALCIUM 8.4 mg/dl (8.4-10.2); CARBON DIOXIDE 20 mmol/L (21-31); CHLORIDE 107 mmol/L (97-110); GLUCOSE 194 mg/dl (70-220); MAGNESIUM 1.5 mg/dl (1.7-2.5); POTASSIUM 4.3 mmol/L (3.5-5.1); SODIUM 132 mmol/L (135-144); TOTAL PROTEIN 5.1 g/dl (6.1-8.1)
[2017-11-15] MEDS: CALCIUM ACETATE 667 MG CAP PO ×3 (08:22→17:21)
[2017-11-15] MEDS: RIFAXIMIN 550 MG TAB PO ×2 (08:22→20:58)
[2017-11-15] MEDS: SPIRONOLACTONE 25 MG TAB PO ×2 (08:22→20:58)
[2017-11-15] MEDS: EZETIMIBE 10 MG TAB PO (08:22)
[2017-11-15] MEDS: CYANOCOBALAMIN 500 MCG TAB PO (08:22)
[2017-11-15] MEDS: DICYCLOMINE 10 MG CAP PO ×4 (08:22→20:58)
[2017-11-15] MEDS: METOCLOPRAMIDE 10 MG INJ IV ×4 (08:23→20:59)
[2017-11-15] MEDS: PETROLATUM 28.35 GM JELLY TOP ×2 (08:23→21:00)
[2017-11-15] MEDS: INSULIN ASPART [NOVOLOG] 3 ML PEN SC ×7 (08:25→21:19)
[2017-11-15] MEDS: MIDODRINE 5 MG TAB PO ×3 (08:30→17:21)
[2017-11-15] MEDS: morphine LIQ (10 MG/5 ML) CUP PO (20:59)
[2017-11-15] MEDS: INSULIN GLARGINE [LANtus] 3 ML PEN SC (21:19)
[2017-11-16] MEDS: morphine LIQ (10 MG/5 ML) CUP PO ×2 (01:06→17:24)
[2017-11-16] MEDS: ACCU-CHEK XX (01:17)
[2017-11-16] MEDS: INSULIN ASPART [NOVOLOG] 3 ML PEN SC ×8 (01:55→21:33)
[2017-11-16] MEDS: LACTULOSE 30ML CUP PO ×4 (05:42→17:25)
[2017-11-16] MEDS: PANTOPRAZOLE (EC) 40 MG TAB PO (05:42)
[2017-11-16] MEDS: traMADol 50 MG TAB PO ×3 (05:42→21:37)
[2017-11-16 07:49] LABS: AMMONIA 40 umol/l (9-30)
[2017-11-16 07:54] LABS: ALANINE AMINOTRANSFERASE 97 IU/L (13-69); ALBUMIN 2.2 g/dl (3.3-4.9); ALBUMIN/GLOBULIN RATIO 0.66; ALKALINE PHOSPHATASE 200 IU/L (42-121); ANION GAP 10 (8-16); ASPARTATE AMINO TRANSFERASE 121 IU/L (15-46); BILIRUBIN,INDIRECT 1.2 mg/dl (0-1.1); BILIRUBIN,TOTAL 1.2 mg/dl (0.2-1.3); BLOOD UREA NITROGEN 5 mg/dl (7-20); CALCIUM 8.6 mg/dl (8.4-10.2); CARBON DIOXIDE 22 mmol/L (21-31); CHLORIDE 108 mmol/L (97-110); CREATININE 0.43 mg/dl (0.61-1.24); GLUCOSE 113 mg/dl (70-220); MAGNESIUM 1.5 mg/dl (1.7-2.5); POTASSIUM 4.1 mmol/L (3.5-5.1); SODIUM 136 mmol/L (135-144); TOTAL PROTEIN 5.5 g/dl (6.1-8.1)
[2017-11-16] MEDS: CALCIUM ACETATE 667 MG CAP PO ×3 (08:30→17:25)
[2017-11-16] MEDS: RIFAXIMIN 550 MG TAB PO ×2 (09:21→21:30)
[2017-11-16] MEDS: MIDODRINE 5 MG TAB PO ×3 (09:22→17:50)
[2017-11-16] MEDS: DICYCLOMINE 10 MG CAP PO ×4 (09:22→21:30)
[2017-11-16] MEDS: CYANOCOBALAMIN 500 MCG TAB PO (09:23)
[2017-11-16] MEDS: SPIRONOLACTONE 25 MG TAB PO ×2 (09:23→21:30)
[2017-11-16] MEDS: METOCLOPRAMIDE 10 MG INJ IV ×4 (09:27→21:30)
[2017-11-16] MEDS: EZETIMIBE 10 MG TAB PO (09:33)
[2017-11-16] MEDS: PETROLATUM 5 GM OINT TOP ×2 (13:41→21:44)
[2017-11-16 15:06] LABS: ALPHA FETOPROTEIN 3.27 IU/L (0.00-7.21)
[2017-11-16] MEDS: INSULIN GLARGINE [LANtus] 3 ML PEN SC (21:34)
[2017-11-17] MEDS: LACTULOSE 30ML CUP PO ×5 (00:05→23:26)
[2017-11-17] MEDS: morphine LIQ (10 MG/5 ML) CUP PO ×2 (00:38→20:24)
[2017-11-17] MEDS: ACCU-CHEK XX (02:00)
[2017-11-17] MEDS: PANTOPRAZOLE (EC) 40 MG TAB PO (06:03)
[2017-11-17] MEDS: traMADol 50 MG TAB PO ×3 (06:04→22:10)
[2017-11-17 06:19] LABS: ADD MAN DIFF? NO
[2017-11-17 06:28] LABS: WHITE BLOOD COUNT 6.4 10^3/ul (4.8-10.8)
[2017-11-17 06:28] LABS: ABNORMAL IP MESSAGE 1; BASOPHIL # 0.1 10^3/ul (0.0-0.1); BASOPHILS % 1.3 % (0.0-2.0); EOSINOPHILS # 0.4 10^3/ul (0.0-0.5); EOSINOPHILS % 6.3 % (0.0-7.0); HEMATOCRIT 27.8 % (42.0-52.0); LYMPHOCYTES # 0.8 10^3/ul (0.8-2.9); LYMPHOCYTES % 12.2 % (15.0-51.0); MEAN CORPUSCULAR VOLUME 94.6 fl (82.0-101.0); MEAN PLATELET VOLUME 10.6 fl (7.4-10.4); MONOCYTE # 0.9 10^3/ul (0.3-0.9); MONOCYTES % 14.1 % (0.0-11.0); NEUTROPHIL # 4.2 10^3/ul (1.6-7.5); NEUTROPHILS % 64.8 % (39.0-77.0); PLATELET COUNT 99 10^3/UL (140-415); POSITIVE DIFF @See below; RED BLOOD COUNT 2.94 10^6/ul (4.70-6.10); RED CELL DISTRIBUTION WIDTH 15.3 % (11.5-14.5)
[2017-11-17 06:35] LABS: AMMONIA 72 umol/l (9-30)
[2017-11-17 06:49] LABS: ALANINE AMINOTRANSFERASE 116 IU/L (13-69); ALBUMIN/GLOBULIN RATIO 0.64; ALKALINE PHOSPHATASE 213 IU/L (42-121); ANION GAP 9 (8-16); ASPARTATE AMINO TRANSFERASE 150 IU/L (15-46); BLOOD UREA NITROGEN 8 mg/dl (7-20); CALCIUM 8.5 mg/dl (8.4-10.2); CARBON DIOXIDE 23 mmol/L (21-31); CHLORIDE 107 mmol/L (97-110); CREATININE 0.45 mg/dl (0.61-1.24); GLUCOSE 134 mg/dl (70-220); MAGNESIUM 1.5 mg/dl (1.7-2.5); POTASSIUM 4.4 mmol/L (3.5-5.1); SODIUM 135 mmol/L (135-144); TOTAL PROTEIN 5.1 g/dl (6.1-8.1)
[2017-11-17 06:50] LABS: BILIRUBIN,INDIRECT 0.6 mg/dl (0-1.1); BILIRUBIN,TOTAL 0.6 mg/dl (0.2-1.3)
[2017-11-17] MEDS: INSULIN ASPART [NOVOLOG] 3 ML PEN SC ×7 (08:04→22:14)
[2017-11-17] MEDS: SPIRONOLACTONE 25 MG TAB PO ×2 (08:05→20:18)
[2017-11-17] MEDS: CALCIUM ACETATE 667 MG CAP PO ×3 (08:05→17:22)
[2017-11-17] MEDS: METOCLOPRAMIDE 10 MG INJ IV ×4 (08:05→22:10)
[2017-11-17] MEDS: MIDODRINE 5 MG TAB PO ×3 (08:06→17:31)
[2017-11-17] MEDS: CLOPIDOGREL 75 MG TAB PO (08:06)
[2017-11-17] MEDS: DICYCLOMINE 10 MG CAP PO ×4 (08:06→22:10)
[2017-11-17] MEDS: RIFAXIMIN 550 MG TAB PO ×2 (08:07→20:22)
[2017-11-17] MEDS: EZETIMIBE 10 MG TAB PO (08:07)
[2017-11-17] MEDS: PETROLATUM 5 GM OINT TOP ×2 (08:07→22:17)
[2017-11-17] MEDS: CYANOCOBALAMIN 500 MCG TAB PO (08:07)
[2017-11-17] MEDS: MAGNESIUM SULFATE 2 GM/50 ML 50 ML IVPB (12:22)
[2017-11-17 17:27] LABS: INR 1.34; PROTIME 16.8 Sec (11.9-14.9); PT RATIO 1.3
[2017-11-17] MEDS: IODIXANOL LOCM 100 ML BTL (19:05)
[2017-11-17] MEDS: SOD CHLORIDE 0.9% 100 ML (19:05)
[2017-11-17] MEDS: INSULIN GLARGINE [LANtus] 3 ML PEN SC (20:22)
[2017-11-18] MEDS: ACCU-CHEK XX (02:00)
[2017-11-18] MEDS: morphine LIQ (10 MG/5 ML) CUP PO ×2 (02:45→23:14)
[2017-11-18 05:28] LABS: ADD MAN DIFF? NO
[2017-11-18 05:36] LABS: WHITE BLOOD COUNT 7.6 10^3/ul (4.8-10.8)
[2017-11-18 05:36] LABS: ABNORMAL IP MESSAGE 1; BASOPHIL # 0.1 10^3/ul (0.0-0.1); BASOPHILS % 1.2 % (0.0-2.0); EOSINOPHILS # 0.4 10^3/ul (0.0-0.5); EOSINOPHILS % 5.4 % (0.0-7.0); HEMATOCRIT 29.6 % (42.0-52.0); HEMOGLOBIN 10.5 g/dl (14.0-18.0); LYMPHOCYTES # 1.1 10^3/ul (0.8-2.9); LYMPHOCYTES % 13.9 % (15.0-51.0); MEAN CORPUSCULAR HEMOGLOBIN 33.1 pg (29.0-33.0); MEAN CORPUSCULAR HGB CONC 35.5 g/dl (32.0-37.0); MEAN CORPUSCULAR VOLUME 93.4 fl (82.0-101.0); MEAN PLATELET VOLUME 10.7 fl (7.4-10.4); MONOCYTES % 13.1 % (0.0-11.0); NEUTROPHILS % 65.5 % (39.0-77.0); PLATELET COUNT 96 10^3/UL (140-415); POSITIVE DIFF @See below; RED BLOOD COUNT 3.17 10^6/ul (4.70-6.10); RED CELL DISTRIBUTION WIDTH 15.5 % (11.5-14.5)
[2017-11-18 06:00] LABS: INR 1.32; PROTIME 16.6 Sec (11.9-14.9); PT RATIO 1.3
[2017-11-18] MEDS: LACTULOSE 30ML CUP PO ×4 (06:00→23:37)
[2017-11-18] MEDS: traMADol 50 MG TAB PO ×3 (06:19→21:26)
[2017-11-18] MEDS: PANTOPRAZOLE (EC) 40 MG TAB PO (06:19)
[2017-11-18 06:43] LABS: ALANINE AMINOTRANSFERASE 132 IU/L (13-69); ALBUMIN 2.2 g/dl (3.3-4.9); ALBUMIN/GLOBULIN RATIO 0.66; ALKALINE PHOSPHATASE 258 IU/L (42-121); ANION GAP 12 (8-16); ASPARTATE AMINO TRANSFERASE 171 IU/L (15-46); BILIRUBIN,INDIRECT 0.7 mg/dl (0-1.1); BILIRUBIN,TOTAL 0.7 mg/dl (0.2-1.3); BLOOD UREA NITROGEN 8 mg/dl (7-20); CALCIUM 8.5 mg/dl (8.4-10.2); CARBON DIOXIDE 23 mmol/L (21-31); CHLORIDE 104 mmol/L (97-110); CREATININE 0.47 mg/dl (0.61-1.24); GLUCOSE 70 mg/dl (70-220); POTASSIUM 4.5 mmol/L (3.5-5.1); SODIUM 134 mmol/L (135-144); TOTAL PROTEIN 5.5 g/dl (6.1-8.1)
[2017-11-18] MEDS: INSULIN ASPART [NOVOLOG] 3 ML PEN SC ×7 (08:15→21:28)
[2017-11-18] MEDS: CALCIUM ACETATE 667 MG CAP PO ×3 (08:41→17:43)
[2017-11-18] MEDS: CLOPIDOGREL 75 MG TAB PO (08:42)
[2017-11-18] MEDS: SPIRONOLACTONE 25 MG TAB PO ×2 (08:42→21:25)
[2017-11-18] MEDS: METOCLOPRAMIDE 10 MG INJ IV ×4 (08:42→21:25)
[2017-11-18] MEDS: DICYCLOMINE 10 MG CAP PO ×4 (08:42→21:25)
[2017-11-18] MEDS: MIDODRINE 5 MG TAB PO ×3 (08:43→17:45)
[2017-11-18] MEDS: PETROLATUM 5 GM OINT TOP ×2 (08:43→21:00)
[2017-11-18] MEDS: CYANOCOBALAMIN 500 MCG TAB PO (08:43)
[2017-11-18] MEDS: RIFAXIMIN 550 MG TAB PO ×2 (08:43→21:25)
[2017-11-18] MEDS: EZETIMIBE 10 MG TAB PO (08:43)
[2017-11-18] MEDS: INSULIN GLARGINE [LANtus] 3 ML PEN SC (21:29)
[2017-11-19] MEDS: LORAZEPAM 2 MG INJ IV (01:14)
[2017-11-19] MEDS: ACCU-CHEK XX (01:19)
[2017-11-19] MEDS: traMADol 50 MG TAB PO ×2 (05:14→13:50)
[2017-11-19] MEDS: PANTOPRAZOLE (EC) 40 MG TAB PO (05:14)
[2017-11-19] MEDS: LACTULOSE 30ML CUP PO ×2 (05:14→12:16)
[2017-11-19 06:07] LABS: ADD MAN DIFF? NO
[2017-11-19 06:12] LABS: WHITE BLOOD COUNT 7.2 10^3/ul (4.8-10.8)
[2017-11-19 06:12] LABS: BASOPHIL # 0.1 10^3/ul (0.0-0.1); BASOPHILS % 0.8 % (0.0-2.0); EOSINOPHILS # 0.2 10^3/ul (0.0-0.5); EOSINOPHILS % 3.3 % (0.0-7.0); HEMATOCRIT 28.7 % (42.0-52.0); HEMOGLOBIN 10.2 g/dl (14.0-18.0); LYMPHOCYTES % 13.2 % (15.0-51.0); MEAN CORPUSCULAR HEMOGLOBIN 33.4 pg (29.0-33.0); MEAN CORPUSCULAR HGB CONC 35.5 g/dl (32.0-37.0); MEAN CORPUSCULAR VOLUME 94.1 fl (82.0-101.0); MEAN PLATELET VOLUME 10.5 fl (7.4-10.4); MONOCYTE # 0.8 10^3/ul (0.3-0.9); MONOCYTES % 11.2 % (0.0-11.0); NEUTROPHIL # 5.1 10^3/ul (1.6-7.5); NEUTROPHILS % 70.8 % (39.0-77.0); PLATELET COUNT 101 10^3/UL (140-415); RED BLOOD COUNT 3.05 10^6/ul (4.70-6.10); RED CELL DISTRIBUTION WIDTH 15.9 % (11.5-14.5)
[2017-11-19] MEDS: INSULIN ASPART [NOVOLOG] 3 ML PEN SC ×4 (08:03→12:15)
[2017-11-19] MEDS: EZETIMIBE 10 MG TAB PO (08:22)
[2017-11-19] MEDS: CALCIUM ACETATE 667 MG CAP PO ×2 (08:22→12:16)
[2017-11-19] MEDS: METOCLOPRAMIDE 10 MG INJ IV ×2 (08:22→12:21)
[2017-11-19] MEDS: SPIRONOLACTONE 25 MG TAB PO (08:22)
[2017-11-19] MEDS: CLOPIDOGREL 75 MG TAB PO (08:22)
[2017-11-19] MEDS: RIFAXIMIN 550 MG TAB PO (08:22)
[2017-11-19] MEDS: CYANOCOBALAMIN 500 MCG TAB PO (08:22)
[2017-11-19] MEDS: DICYCLOMINE 10 MG CAP PO ×2 (09:45→12:21)
[2017-11-19] MEDS: MIDODRINE 5 MG TAB PO ×2 (09:47→13:49)
[2017-11-19] MEDS: PETROLATUM 28.35 GM JELLY TOP (11:07)
[2017-11-19 13:38] LABS: AMMONIA 115 umol/l (9-30)
[2017-11-19 14:13] LABS: ALANINE AMINOTRANSFERASE 134 IU/L (13-69); ALBUMIN 2.1 g/dl (3.3-4.9); ALKALINE PHOSPHATASE 290 IU/L (42-121); ANION GAP 13 (8-16); ASPARTATE AMINO TRANSFERASE 187 IU/L (15-46); BILIRUBIN,INDIRECT 0.7 mg/dl (0-1.1); BILIRUBIN,TOTAL 0.7 mg/dl (0.2-1.3); BLOOD UREA NITROGEN 10 mg/dl (7-20); CALCIUM 8.4 mg/dl (8.4-10.2); CARBON DIOXIDE 21 mmol/L (21-31); CHLORIDE 102 mmol/L (97-110); CREATININE 0.51 mg/dl (0.61-1.24); GLUCOSE 232 mg/dl (70-220); POTASSIUM 4.7 mmol/L (3.5-5.1); SODIUM 131 mmol/L (135-144); TOTAL PROTEIN 5.6 g/dl (6.1-8.1)
[2017-11-19 14:47] LABS: MITOCHONDRIAL TB NEGATIVE (NEGATIVE); SMOOTH MUSCLE AB SCREEN NEGATIVE (NEGATIVE)
[2017-11-19] MEDS: HYDROCORTISONE 1% 28 GM CR TOP (15:06)
[2017-11-19 15:36] LABS: ANA SCREEN NEGATIVE (NEGATIVE)
== END 2017-11-19 17:55 | disposition home or self-care (01) | DRG 640 ==
LOC: ICU 11-10 05:00 → MS2 11-16 00:03 → E/R 10:12 → ICU 11-09 17:11 → MS4 11-13 23:01 → TEL 13:43
PROC: 0DJ08ZZ Inspection of Upper Intestinal Tract, Via Natural or Artificial Opening Endoscopic (ICD-10-PCS; principal; 2017-11-09 15:18)
DX: E87.5 Hyperkalemia (principal); K72.00 Acute and subacute hepatic failure without coma; K92.0 Hematemesis; E11.65 Type 2 diabetes mellitus with hyperglycemia; E87.1 Hypo-osmolality and hyponatremia; D69.6 Thrombocytopenia, unspecified; I95.9 Hypotension, unspecified; K74.60 Unspecified cirrhosis of liver; G89.29 Other chronic pain; I25.10 Atherosclerotic heart disease of native coronary artery without angina pectoris; L30.9 Dermatitis, unspecified; R04.1 Hemorrhage from throat; R63.0 Anorexia; Z68.26 Body mass index [BMI] 26.0-26.9, adult; Z87.891 Personal history of nicotine dependence; Z95.1 Presence of aortocoronary bypass graft; Z79.4 Long term (current) use of insulin; Z79.02 Long term (current) use of antithrombotics/antiplatelets; Z79.82 Long term (current) use of aspirin
CPT/HCPCS: 36415; 70450; 71045; 74177; 74181; 76705; 80048; 80053; 80076; 81001; 82105; 82140; 82962; 83036; 83690; 83735; 84100; 84484; 85014; 85018; 85025; 85610; 86038; 86255; 87040; 87081; 92526; 92610; 93005; 94644; 96374; 96375; 97110; 97116; 97162; 97530; 99291-25

== ENCOUNTER 2017-12-06 21:22 | Inpatient (IN) | payer MEDICAID ==
[2017-12-06] MEDS: ONDANSETRON 4 MG INJ IV (21:48)
[2017-12-06] MEDS ORDERED: ONDANSETRON (ODT) 4 MG TAB ODT (21:50)
[2017-12-06 21:53] LABS: ADD MAN DIFF? NO
[2017-12-06 21:56] LABS: WHITE BLOOD COUNT 9.8 10^3/ul (4.8-10.8)
[2017-12-06 21:56] LABS: BASOPHIL # 0.1 10^3/ul (0.0-0.1); BASOPHILS % 0.5 % (0.0-2.0); EOSINOPHILS % 0.3 % (0.0-7.0); HEMATOCRIT 37.9 % (42.0-52.0); HEMOGLOBIN 13.2 g/dl (14.0-18.0); LYMPHOCYTES # 0.7 10^3/ul (0.8-2.9); LYMPHOCYTES % 7.6 % (15.0-51.0); MEAN CORPUSCULAR HEMOGLOBIN 33.2 pg (29.0-33.0); MEAN CORPUSCULAR HGB CONC 34.8 g/dl (32.0-37.0); MEAN CORPUSCULAR VOLUME 95.2 fl (82.0-101.0); MEAN PLATELET VOLUME 10.9 fl (7.4-10.4); MONOCYTE # 0.7 10^3/ul (0.3-0.9); MONOCYTES % 7.5 % (0.0-11.0); NEUTROPHIL # 8.1 10^3/ul (1.6-7.5); NEUTROPHILS % 83.4 % (39.0-77.0); PLATELET COUNT 181 10^3/UL (140-415); RED BLOOD COUNT 3.98 10^6/ul (4.70-6.10); RED CELL DISTRIBUTION WIDTH 15.1 % (11.5-14.5)
[2017-12-06] MEDS: ONDANSETRON (ODT) 4 MG TAB ODT (22:10)
[2017-12-06 22:12] LABS: INR 1.29; PROTIME 16.3 Sec (11.9-14.9); PT RATIO 1.3
[2017-12-06 22:13] LABS: PARTIAL THROMBOPLASTIN TIME 32.6 Sec (25.0-35.0)
[2017-12-06 22:16] LABS: ALANINE AMINOTRANSFERASE 50 IU/L (13-69); ALBUMIN 3.3 g/dl (3.3-4.9); ALBUMIN/GLOBULIN RATIO 0.71; ALKALINE PHOSPHATASE 321 IU/L (42-121); ANION GAP 22 (8-16); ASPARTATE AMINO TRANSFERASE 75 IU/L (15-46); BILIRUBIN,INDIRECT 1.3 mg/dl (0-1.1); BILIRUBIN,TOTAL 1.3 mg/dl (0.2-1.3); BLOOD UREA NITROGEN 19 mg/dl (7-20); CALCIUM 9.4 mg/dl (8.4-10.2); CARBON DIOXIDE 24 mmol/L (21-31); CHLORIDE 91 mmol/L (97-110); CREATININE 0.88 mg/dl (0.61-1.24); GLUCOSE 187 mg/dl (70-220); POTASSIUM 4.7 mmol/L (3.5-5.1); SODIUM 132 mmol/L (135-144); TOTAL PROTEIN 7.9 g/dl (6.1-8.1)
[2017-12-06 22:21] LABS: LACTIC ACID 7.3 mmol/L (0.5-2.0)
[2017-12-06 22:27] LABS: TROPONIN-I 0.031 ng/ml (0.00-0.12)
[2017-12-06] MEDS: morphine 4 MG/ML VIAL IV (23:00)
[2017-12-06 23:45] LABS: ADD UMIC NO; UR ASCORBIC ACID NEGATIVE (NEGATIVE); UR BILIRUBIN (Dip) NEGATIVE (NEGATIVE); UR BLOOD (Dip) NEGATIVE (NEGATIVE); UR CLARITY CLEAR (CLEAR); UR COLOR YELLOW (YELLOW); UR GLUCOSE (Dip) NEGATIVE (NEGATIVE); UR KETONES (Dip) NEGATIVE (NEGATIVE); UR LEUKOCYTE ESTERASE (Dip) NEGATIVE Leu/ul (NEGATIVE); UR NITRITE (Dip) NEGATIVE (NEGATIVE); UR SPECIFIC GRAVITY (Dip) 1.012 (1.003-1.030); UR TOTAL PROTEIN (Dip) NEGATIVE (NEGATIVE); UR UROBILINOGEN (Dip) 1+ mg/dL (NEGATIVE)
[2017-12-07] MEDS: SODIUM CHLORIDE 0.9% 1L BAG IV* (00:15)
[2017-12-07] MEDS: CEFEPIME 2GM/50 ML (PMX) 50 ML IVPB (00:39)
[2017-12-07] MEDS: VANCOMYCIN 1 GM (PMX) 250 ML IVPB (00:39)
[2017-12-07 01:49] LABS: LACTIC ACID 6.4 mmol/L (0.5-2.0)
[2017-12-07] MEDS: morphine 2 MG INJ IV ×3 (01:54→10:58)
[2017-12-07] MEDS: SOD CHLORIDE 0.9% 1,000 ML IV ×2 (01:57→10:51)
[2017-12-07] MEDS ORDERED: DOCUSATE SODIUM 100 MG CAP PO (02:00)
[2017-12-07] MEDS ORDERED: NACL 0.9% 3 ML SYG IV (02:00)
[2017-12-07] MEDS ORDERED: HYDROCODONE/APAP (5/325) TAB PO (02:00)
[2017-12-07] MEDS ORDERED: ZOLPIDEM 5 MG TAB PO (02:00)
[2017-12-07] MEDS ORDERED: ACETAMINOPHEN 325 MG TAB PO (02:00)
[2017-12-07 04:28] LABS: ADD MAN DIFF? NO
[2017-12-07 04:29] LABS: AMMONIA 91 umol/l (9-30)
[2017-12-07 04:30] LABS: ANION GAP 19 (8-16); BLOOD UREA NITROGEN 19 mg/dl (7-20); CALCIUM 8.7 mg/dl (8.4-10.2); CARBON DIOXIDE 25 mmol/L (21-31); CHLORIDE 96 mmol/L (97-110); CREATININE 0.82 mg/dl (0.61-1.24); GLUCOSE 230 mg/dl (70-220); MAGNESIUM 1.9 mg/dl (1.7-2.5); POTASSIUM 4.8 mmol/L (3.5-5.1); SODIUM 135 mmol/L (135-144)
[2017-12-07 04:33] LABS: BASOPHILS % 0.3 % (0.0-2.0); EOSINOPHILS % 0.2 % (0.0-7.0); HEMATOCRIT 33.7 % (42.0-52.0); HEMOGLOBIN 11.4 g/dl (14.0-18.0); LYMPHOCYTES # 0.7 10^3/ul (0.8-2.9); LYMPHOCYTES % 6.6 % (15.0-51.0); MEAN CORPUSCULAR HEMOGLOBIN 32.5 pg (29.0-33.0); MEAN CORPUSCULAR HGB CONC 33.8 g/dl (32.0-37.0); MEAN PLATELET VOLUME 10.4 fl (7.4-10.4); MONOCYTE # 0.5 10^3/ul (0.3-0.9); MONOCYTES % 4.9 % (0.0-11.0); NEUTROPHIL # 9.2 10^3/ul (1.6-7.5); NEUTROPHILS % 87.5 % (39.0-77.0); PLATELET COUNT 120 10^3/UL (140-415); RED BLOOD COUNT 3.51 10^6/ul (4.70-6.10); RED CELL DISTRIBUTION WIDTH 15.2 % (11.5-14.5)
[2017-12-07 04:33] LABS: WHITE BLOOD COUNT 10.5 10^3/ul (4.8-10.8)
[2017-12-07 05:07] LABS: HEMOGLOBIN A1C 6.4 % (0-5.9)
[2017-12-07] MEDS: LACTULOSE 30ML CUP PO ×2 (06:01→13:15)
[2017-12-07] MEDS: CALCIUM ACETATE 667 MG CAP PO ×2 (08:00→13:15)
[2017-12-07] MEDS ORDERED: GLUCAGON 1 MG INJ IM (08:30)
[2017-12-07] MEDS ORDERED: GLUCOSE GEL 15 GRAM TUBE PO ×2 (08:30)
[2017-12-07] MEDS ORDERED: DEXTROSE 50% 50 ML SYRINGE IV ×2 (08:30)
[2017-12-07] MEDS ORDERED: GLUCOSE GEL 15 GRAM TUBE BUCCAL (08:30)
[2017-12-07] MEDS ORDERED: METOCLOPRAMIDE 10 MG INJ IV (08:30)
[2017-12-07 09:26] LABS: LACTIC ACID 4.5 mmol/L (0.5-2.0)
[2017-12-07] MEDS: MIDODRINE 5 MG TAB PO ×2 (09:44→13:15)
[2017-12-07] MEDS: SPIRONOLACTONE 50 MG TAB PO (09:44)
[2017-12-07] MEDS: CLOPIDOGREL 75 MG TAB PO (09:45)
[2017-12-07] MEDS: ASPIRIN (EC) 81 MG TAB PO (09:45)
[2017-12-07] MEDS: FERROUS SULFATE (EC) 325 MG TAB PO (09:45)
[2017-12-07] MEDS: RIFAXIMIN 550 MG TAB PO (09:45)
[2017-12-07] MEDS: CYANOCOBALAMIN 500 MCG TAB PO (09:45)
[2017-12-07] MEDS: EZETIMIBE 10 MG TAB PO (09:45)
[2017-12-07] MEDS: HYDROCORTISONE 0.5% 28.35 GM OINT TOP ×2 (09:46→13:26)
[2017-12-07] MEDS: ONDANSETRON 4 MG INJ IV (10:58)
[2017-12-07] MEDS: INSULIN ASPART [NOVOLOG] 3 ML PEN SC (13:20)
[2017-12-07] MEDS: METOCLOPRAMIDE 10 MG INJ IV (14:30)
[2017-12-07] MEDS ORDERED: INSULIN ASPART [NOVOLOG] 3 ML PEN SC (18:00)
[2017-12-07] MEDS ORDERED: INSULIN GLARGINE [LANtus] 3 ML PEN SC (21:00)
[2017-12-08] MEDS ORDERED: ACCU-CHEK XX (02:00)
== END 2017-12-07 19:20 | disposition left against medical advice (07) | DRG 392 ==
LOC: TEL 12-07 01:42 → E/R 12-07 19:26
DX: R11.2 Nausea with vomiting, unspecified (principal); K70.30 Alcoholic cirrhosis of liver without ascites; R73.9 Hyperglycemia, unspecified; Z76.82 Awaiting organ transplant status; R10.9 Unspecified abdominal pain
CPT/HCPCS: 36415; 71045; 74176; 80048; 80053; 81003; 82140; 82962; 83036; 83605; 83735; 84484; 85025; 85610; 85730; 87040; 87045; 87086; 93005; 96372; 96374; 96375; 96376; 99285-25

== ENCOUNTER 2017-12-08 09:29 | Inpatient (IN) | payer MEDICAID ==
[2017-12-08] MEDS: SPIRONOLACTONE 50 MG TAB PO (03:00)
[2017-12-08] MEDS: RIFAXIMIN 550 MG TAB PO (03:00)
[2017-12-08] MEDS: ONDANSETRON 4 MG INJ IV ×2 (10:50→13:44)
[2017-12-08] MEDS: SOD CHLORIDE 0.9% 1,000 ML IV ×2 (10:55→14:00)
[2017-12-08 10:58] LABS: ADD MAN DIFF? NO
[2017-12-08 11:01] LABS: ABNORMAL IP MESSAGE 1; BASOPHILS % 0.1 % (0.0-2.0); HEMATOCRIT 32.5 % (42.0-52.0); HEMOGLOBIN 11.2 g/dl (14.0-18.0); LYMPHOCYTES # 0.3 10^3/ul (0.8-2.9); LYMPHOCYTES % 3.4 % (15.0-51.0); MEAN CORPUSCULAR HEMOGLOBIN 33.1 pg (29.0-33.0); MEAN CORPUSCULAR HGB CONC 34.5 g/dl (32.0-37.0); MEAN CORPUSCULAR VOLUME 96.2 fl (82.0-101.0); MEAN PLATELET VOLUME 10.5 fl (7.4-10.4); MONOCYTE # 0.3 10^3/ul (0.3-0.9); MONOCYTES % 3.3 % (0.0-11.0); NEUTROPHIL # 9.4 10^3/ul (1.6-7.5); NEUTROPHILS % 92.7 % (39.0-77.0); PLATELET COUNT 95 10^3/UL (140-415); POSITIVE DIFF @See below; RED BLOOD COUNT 3.38 10^6/ul (4.70-6.10); RED CELL DISTRIBUTION WIDTH 14.7 % (11.5-14.5)
[2017-12-08 11:01] LABS: WHITE BLOOD COUNT 10.1 10^3/ul (4.8-10.8)
[2017-12-08] MEDS: morphine 4 MG/ML VIAL IV (11:18)
[2017-12-08 11:22] LABS: INR 1.34; PROTIME 16.8 Sec (11.9-14.9); PT RATIO 1.3
[2017-12-08 11:23] LABS: PARTIAL THROMBOPLASTIN TIME 29.7 Sec (25.0-35.0)
[2017-12-08 11:30] LABS: LACTIC ACID 3.4 mmol/L (0.5-2.0)
[2017-12-08] MEDS: PANTOPRAZOLE IV 80 MG in SOD CHLORIDE 0.9% 100 ML IVPB (11:35)
[2017-12-08] MEDS: OCTREOTIDE 50 MCG in SOD CHLORIDE 0.9% 25 ML IVPB (11:35)
[2017-12-08 12:24] LABS: ALANINE AMINOTRANSFERASE 53 IU/L (13-69); ALBUMIN 2.7 g/dl (3.3-4.9); ALBUMIN/GLOBULIN RATIO 0.69; ALKALINE PHOSPHATASE 254 IU/L (42-121); ANION GAP 13 (8-16); ASPARTATE AMINO TRANSFERASE 58 IU/L (15-46); BILIRUBIN,INDIRECT 1.2 mg/dl (0-1.1); BILIRUBIN,TOTAL 1.2 mg/dl (0.2-1.3); BLOOD UREA NITROGEN 13 mg/dl (7-20); CALCIUM 9.2 mg/dl (8.4-10.2); CARBON DIOXIDE 26 mmol/L (21-31); CHLORIDE 95 mmol/L (97-110); CREATININE 0.65 mg/dl (0.61-1.24); LIPASE 17 U/L (23-300); POTASSIUM 4.8 mmol/L (3.5-5.1); SODIUM 129 mmol/L (135-144); TOTAL PROTEIN 6.6 g/dl (6.1-8.1)
[2017-12-08 12:34] LABS: GLUCOSE 435 mg/dl (70-220)
[2017-12-08 12:35] LABS: TROPONIN-I 0.026 ng/ml (0.00-0.12)
[2017-12-08] MEDS ORDERED: ONDANSETRON 4 MG INJ IV (13:00)
[2017-12-08] MEDS ORDERED: ACETAMINOPHEN 325 MG TAB PO ×2 (13:00→14:00)
[2017-12-08] MEDS: SODIUM CHLORIDE 0.9% 1L BAG IV* (13:49)
[2017-12-08] MEDS: PANTOPRAZOLE IV 80 MG in SOD CHLORIDE 0.9% 100 ML IV ×2 (13:50→19:23)
[2017-12-08] MEDS: OCTREOTIDE 500 MCG in SOD CHLORIDE 0.9% 49 ML IV (13:50)
[2017-12-08] MEDS: CEFEPIME 2GM/50 ML (PMX) 50 ML IVPB (13:50)
[2017-12-08] MEDS ORDERED: BISACODYL (EC) 5 MG TAB PO (14:00)
[2017-12-08] MEDS ORDERED: MAGNESIUM HYDROXIDE 30ML CUP PO (14:00)
[2017-12-08] MEDS ORDERED: NACL 0.9% 3 ML SYG IV (14:00)
[2017-12-08] MEDS ORDERED: DOCUSATE SODIUM 100 MG CAP PO (14:00)
[2017-12-08] MEDS: VANCOMYCIN 1 GM (PMX) 250 ML IVPB (14:18)
[2017-12-08 14:40] LABS: LACTIC ACID 3.3 mmol/L (0.5-2.0)
[2017-12-08 14:42] LABS: AMMONIA < 9 umol/l (9-30)
[2017-12-08] MEDS: morphine 2 MG INJ IV (14:51)
[2017-12-08 16:15] LABS: ADD UMIC NO; UR ASCORBIC ACID NEGATIVE (NEGATIVE); UR BILIRUBIN (Dip) NEGATIVE (NEGATIVE); UR BLOOD (Dip) NEGATIVE (NEGATIVE); UR CLARITY CLEAR (CLEAR); UR COLOR YELLOW (YELLOW); UR GLUCOSE (Dip) 3+ mg/dL (NEGATIVE); UR KETONES (Dip) NEGATIVE (NEGATIVE); UR LEUKOCYTE ESTERASE (Dip) NEGATIVE Leu/ul (NEGATIVE); UR NITRITE (Dip) NEGATIVE (NEGATIVE); UR SPECIFIC GRAVITY (Dip) 1.016 (1.003-1.030); UR TOTAL PROTEIN (Dip) NEGATIVE (NEGATIVE); UR UROBILINOGEN (Dip) NEGATIVE (NEGATIVE)
[2017-12-08] MEDS: LACTULOSE 30ML CUP PO (17:59)
[2017-12-08] MEDS: CALCIUM ACETATE 667 MG CAP PO (17:59)
[2017-12-08] MEDS: METOCLOPRAMIDE 10 MG INJ IV (18:20)
[2017-12-08 18:23] LABS: HEMATOCRIT 27.4 % (42.0-52.0); HEMOGLOBIN 9.3 g/dl (14.0-18.0)
[2017-12-08 18:42] LABS: LACTIC ACID 2.5 mmol/L (0.5-2.0)
[2017-12-08] MEDS: LACTULOSE ENEMA 1,000 ML BTL PR ×2 (19:00→19:34)
[2017-12-08] MEDS: INSULIN ASPART [NOVOLOG] 3 ML PEN SC ×3 (19:46→22:09)
[2017-12-08 21:21] LABS: LACTIC ACID 3.4 mmol/L (0.5-2.0)
[2017-12-08] MEDS: INSULIN GLARGINE [LANtus] 3 ML PEN SC (22:08)
[2017-12-08] MEDS: MIDODRINE 5 MG TAB PO (23:49)
[2017-12-08] MEDS: CEFTRIAXONE 1 GM/50 ML (PMX) 50 ML IVPB (23:49)
[2017-12-09] MEDS: HYDROCODONE/APAP (5/325) TAB PO (00:26)
[2017-12-09] MEDS: SOD CHLORIDE 0.9% 1,000 ML IV ×2 (00:27→15:00)
[2017-12-09 00:41] LABS: HEMATOCRIT 27.1 % (42.0-52.0); HEMOGLOBIN 9.3 g/dl (14.0-18.0)
[2017-12-09] MEDS: morphine 2 MG INJ IV ×2 (01:25→11:07)
[2017-12-09] MEDS: ONDANSETRON 4 MG INJ IV ×2 (01:25→12:17)
[2017-12-09] MEDS: ACCU-CHEK XX (02:00)
[2017-12-09] MEDS: METOCLOPRAMIDE 10 MG INJ IV ×5 (03:00→23:59)
[2017-12-09] MEDS: LACTULOSE ENEMA 1,000 ML BTL PR ×5 (03:06→23:58)
[2017-12-09] MEDS ORDERED: PENDING SANTYL ORDER FOR WOUND CARE XX (04:00)
[2017-12-09] MEDS: PANTOPRAZOLE IV 80 MG in SOD CHLORIDE 0.9% 100 ML IV ×2 (05:35→13:53)
[2017-12-09] MEDS: LACTULOSE 30ML CUP PO ×6 (05:36→23:59)
[2017-12-09 05:40] LABS: ADD MAN DIFF? NO
[2017-12-09 06:05] LABS: ABNORMAL IP MESSAGE 1; BASOPHIL # 0.1 10^3/ul (0.0-0.1); BASOPHILS % 0.9 % (0.0-2.0); EOSINOPHILS # 0.1 10^3/ul (0.0-0.5); EOSINOPHILS % 1.9 % (0.0-7.0); HEMATOCRIT 26.1 % (42.0-52.0); HEMOGLOBIN 8.8 g/dl (14.0-18.0); LYMPHOCYTES # 0.9 10^3/ul (0.8-2.9); LYMPHOCYTES % 12.5 % (15.0-51.0); MEAN CORPUSCULAR HEMOGLOBIN 32.6 pg (29.0-33.0); MEAN CORPUSCULAR HGB CONC 33.7 g/dl (32.0-37.0); MEAN CORPUSCULAR VOLUME 96.7 fl (82.0-101.0); MEAN PLATELET VOLUME 10.6 fl (7.4-10.4); MONOCYTE # 0.8 10^3/ul (0.3-0.9); MONOCYTES % 11.1 % (0.0-11.0); NEUTROPHIL # 5.1 10^3/ul (1.6-7.5); NEUTROPHILS % 73.2 % (39.0-77.0); PLATELET COUNT 78 10^3/UL (140-415); POSITIVE DIFF @See below; RED CELL DISTRIBUTION WIDTH 14.7 % (11.5-14.5)
[2017-12-09 06:23] LABS: LACTIC ACID 1.8 mmol/L (0.5-2.0)
[2017-12-09 06:35] LABS: ALANINE AMINOTRANSFERASE 39 IU/L (13-69); ALBUMIN 1.7 g/dl (3.3-4.9); ALBUMIN/GLOBULIN RATIO 0.58; ALKALINE PHOSPHATASE 142 IU/L (42-121); ANION GAP 4 (8-16); ASPARTATE AMINO TRANSFERASE 36 IU/L (15-46); BILIRUBIN,INDIRECT 0.7 mg/dl (0-1.1); BILIRUBIN,TOTAL 0.7 mg/dl (0.2-1.3); BLOOD UREA NITROGEN 11 mg/dl (7-20); CALCIUM 8.1 mg/dl (8.4-10.2); CARBON DIOXIDE 27 mmol/L (21-31); CHLORIDE 106 mmol/L (97-110); CHOL/HDL RATIO 2.4 RATIO; CHOLESTEROL 56 mg/dl (100-200); CREATININE 0.55 mg/dl (0.61-1.24); GLUCOSE 162 mg/dl (70-220); HDL CHOLESTEROL 23 mg/dl (28-71); LDL CHOLESTEROL,CALCULATED 24 mg/dl; MAGNESIUM 1.6 mg/dl (1.7-2.5); POTASSIUM 4.2 mmol/L (3.5-5.1); SODIUM 133 mmol/L (135-144); TOTAL PROTEIN 4.6 g/dl (6.1-8.1); TRIGLYCERIDES 46 mg/dl (0-149)
[2017-12-09] MEDS: INSULIN ASPART [NOVOLOG] 3 ML PEN SC ×7 (08:00→21:46)
[2017-12-09] MEDS: FERROUS SULFATE (EC) 325 MG TAB PO (08:28)
[2017-12-09] MEDS: RIFAXIMIN 550 MG TAB PO ×2 (08:30→21:43)
[2017-12-09] MEDS: EZETIMIBE 10 MG TAB PO (08:30)
[2017-12-09] MEDS: MIDODRINE 5 MG TAB PO ×3 (08:30→21:46)
[2017-12-09] MEDS: CALCIUM ACETATE 667 MG CAP PO ×3 (08:31→17:39)
[2017-12-09] MEDS: CYANOCOBALAMIN 500 MCG TAB PO (08:34)
[2017-12-09] MEDS: SPIRONOLACTONE 50 MG TAB PO ×2 (10:09→21:43)
[2017-12-09] MEDS: morphine LIQ (10 MG/5 ML) CUP PO ×2 (15:45→17:36)
[2017-12-09] MEDS: PANTOPRAZOLE (EC) 40 MG TAB PO (17:39)
[2017-12-09] MEDS: INSULIN GLARGINE [LANtus] 3 ML PEN SC (21:44)
[2017-12-09] MEDS: LORAZEPAM 0.5 MG TAB PO (21:55)
[2017-12-10] MEDS: morphine LIQ (10 MG/5 ML) CUP PO ×4 (00:38→23:19)
[2017-12-10] MEDS: ACCU-CHEK XX (02:00)
[2017-12-10] MEDS: SOD CHLORIDE 0.9% 1,000 ML IV ×3 (03:30→20:23)
[2017-12-10] MEDS: LACTULOSE ENEMA 1,000 ML BTL PR ×4 (04:06→23:18)
[2017-12-10] MEDS: METOCLOPRAMIDE 10 MG INJ IV ×3 (04:41→18:20)
[2017-12-10] MEDS: LACTULOSE 30ML CUP PO ×3 (04:41→18:20)
[2017-12-10] MEDS: PANTOPRAZOLE (EC) 40 MG TAB PO ×2 (04:41→18:20)
[2017-12-10 06:10] LABS: ADD MAN DIFF? NO
[2017-12-10 06:27] LABS: WHITE BLOOD COUNT 6.4 10^3/ul (4.8-10.8)
[2017-12-10 06:27] LABS: ABNORMAL IP MESSAGE 1; BASOPHIL # 0.1 10^3/ul (0.0-0.1); BASOPHILS % 1.1 % (0.0-2.0); EOSINOPHILS # 0.2 10^3/ul (0.0-0.5); EOSINOPHILS % 2.8 % (0.0-7.0); HEMATOCRIT 29.1 % (42.0-52.0); HEMOGLOBIN 9.9 g/dl (14.0-18.0); LYMPHOCYTES # 0.9 10^3/ul (0.8-2.9); MEAN CORPUSCULAR HEMOGLOBIN 32.7 pg (29.0-33.0); MEAN PLATELET VOLUME 10.7 fl (7.4-10.4); MONOCYTE # 0.8 10^3/ul (0.3-0.9); MONOCYTES % 12.3 % (0.0-11.0); NEUTROPHIL # 4.5 10^3/ul (1.6-7.5); NEUTROPHILS % 69.2 % (39.0-77.0); PLATELET COUNT 93 10^3/UL (140-415); POSITIVE DIFF @See below; RED BLOOD COUNT 3.03 10^6/ul (4.70-6.10); RED CELL DISTRIBUTION WIDTH 14.4 % (11.5-14.5)
[2017-12-10 06:56] LABS: ALANINE AMINOTRANSFERASE 43 IU/L (13-69); ALBUMIN 1.8 g/dl (3.3-4.9); ALBUMIN/GLOBULIN RATIO 0.56; ALKALINE PHOSPHATASE 152 IU/L (42-121); ANION GAP 5 (8-16); ASPARTATE AMINO TRANSFERASE 55 IU/L (15-46); BILIRUBIN,INDIRECT 0.8 mg/dl (0-1.1); BILIRUBIN,TOTAL 0.8 mg/dl (0.2-1.3); BLOOD UREA NITROGEN 6 mg/dl (7-20); CALCIUM 8.4 mg/dl (8.4-10.2); CARBON DIOXIDE 25 mmol/L (21-31); CHLORIDE 108 mmol/L (97-110); CREATININE 0.56 mg/dl (0.61-1.24); GLUCOSE 141 mg/dl (70-220); POTASSIUM 3.9 mmol/L (3.5-5.1); SODIUM 134 mmol/L (135-144)
[2017-12-10] MEDS: INSULIN ASPART [NOVOLOG] 3 ML PEN SC ×7 (08:00→20:18)
[2017-12-10] MEDS: CALCIUM ACETATE 667 MG CAP PO ×3 (08:24→18:19)
[2017-12-10] MEDS: RIFAXIMIN 550 MG TAB PO ×2 (08:25→20:17)
[2017-12-10] MEDS: EZETIMIBE 10 MG TAB PO (08:25)
[2017-12-10] MEDS: CYANOCOBALAMIN 500 MCG TAB PO (08:25)
[2017-12-10] MEDS: MIDODRINE 5 MG TAB PO ×3 (08:25→20:19)
[2017-12-10] MEDS: SPIRONOLACTONE 50 MG TAB PO ×2 (08:25→20:21)
[2017-12-10] MEDS: FERROUS SULFATE (EC) 325 MG TAB PO (09:36)
[2017-12-10] MEDS: ONDANSETRON 4 MG INJ IV (19:09)
[2017-12-10] MEDS: INSULIN GLARGINE [LANtus] 3 ML PEN SC (20:18)
[2017-12-11] MEDS: LACTULOSE 30ML CUP PO ×3 (00:09→05:36)
[2017-12-11] MEDS: METOCLOPRAMIDE 10 MG INJ IV ×3 (00:10→05:36)
[2017-12-11] MEDS: ACCU-CHEK XX (01:04)
[2017-12-11] MEDS: LACTULOSE ENEMA 1,000 ML BTL PR (05:36)
[2017-12-11] MEDS: PANTOPRAZOLE (EC) 40 MG TAB PO (06:13)
[2017-12-11] MEDS: INSULIN ASPART [NOVOLOG] 3 ML PEN SC ×2 (08:00→08:20)
[2017-12-11] MEDS: EZETIMIBE 10 MG TAB PO (08:24)
[2017-12-11] MEDS: RIFAXIMIN 550 MG TAB PO (08:25)
[2017-12-11] MEDS: CYANOCOBALAMIN 500 MCG TAB PO (08:27)
[2017-12-11] MEDS: SPIRONOLACTONE 50 MG TAB PO (08:27)
[2017-12-11] MEDS: FERROUS SULFATE (EC) 325 MG TAB PO (08:27)
[2017-12-11] MEDS: CALCIUM ACETATE 667 MG CAP PO (08:27)
[2017-12-11] MEDS: MIDODRINE 5 MG TAB PO (08:27)
== END 2017-12-11 11:43 | disposition home or self-care (01) | DRG 369 ==
LOC: E/R 09:29 → PP2 12:53
DX: K22.6 Gastro-esophageal laceration-hemorrhage syndrome (principal); E87.2 Acidosis; D62 Acute posthemorrhagic anemia; E88.09 Other disorders of plasma-protein metabolism, not elsewhere classified; E11.43 Type 2 diabetes mellitus with diabetic autonomic (poly)neuropathy; I95.89 Other hypotension; K31.84 Gastroparesis; K70.30 Alcoholic cirrhosis of liver without ascites; D50.0 Iron deficiency anemia secondary to blood loss (chronic); D47.3 Essential (hemorrhagic) thrombocythemia; G89.29 Other chronic pain; I25.10 Atherosclerotic heart disease of native coronary artery without angina pectoris; R91.1 Solitary pulmonary nodule; Z95.1 Presence of aortocoronary bypass graft; Z87.891 Personal history of nicotine dependence; Z79.4 Long term (current) use of insulin
CPT/HCPCS: 36415; 71045; 80053; 80061; 81003; 82140; 82962; 83605; 83690; 83735; 84484; 85014; 85018; 85025; 85610; 85730; 86850; 86900; 86901; 87040; 87086; 93005; 96361; 96365; 96372; 96375; 96376; 99285-25

== ENCOUNTER 2018-01-07 21:25 | Inpatient (IN) | payer MEDICAID ==
[2018-01-07 22:42] LABS: ADD MAN DIFF? NO
[2018-01-07 22:44] LABS: WHITE BLOOD COUNT 9.3 10^3/ul (4.8-10.8)
[2018-01-07 22:44] LABS: BASOPHIL # 0.1 10^3/ul (0.0-0.1); EOSINOPHILS # 0.2 10^3/ul (0.0-0.5); EOSINOPHILS % 1.7 % (0.0-7.0); HEMOGLOBIN 12.3 g/dl (14.0-18.0); LYMPHOCYTES # 1.4 10^3/ul (0.8-2.9); LYMPHOCYTES % 14.5 % (15.0-51.0); MEAN CORPUSCULAR HEMOGLOBIN 31.5 pg (29.0-33.0); MEAN CORPUSCULAR HGB CONC 35.1 g/dl (32.0-37.0); MEAN CORPUSCULAR VOLUME 89.7 fl (82.0-101.0); MEAN PLATELET VOLUME 9.9 fl (7.4-10.4); MONOCYTE # 1.1 10^3/ul (0.3-0.9); MONOCYTES % 11.6 % (0.0-11.0); NEUTROPHIL # 6.5 10^3/ul (1.6-7.5); NEUTROPHILS % 69.7 % (39.0-77.0); PLATELET COUNT 193 10^3/UL (140-415); RED CELL DISTRIBUTION WIDTH 14.6 % (11.5-14.5)
[2018-01-07] MEDS: SODIUM CHLORIDE 0.9% 1L BAG IV* (22:59)
[2018-01-07] MEDS: ONDANSETRON 4 MG INJ IV (22:59)
[2018-01-07 23:03] LABS: AMMONIA 170 umol/l (9-30)
[2018-01-07 23:04] LABS: ALANINE AMINOTRANSFERASE 86 IU/L (13-69); ALBUMIN 2.9 g/dl (3.3-4.9); ALBUMIN/GLOBULIN RATIO 0.67; ALKALINE PHOSPHATASE 281 IU/L (42-121); AMYLASE 64 U/L (11-123); ANION GAP 17 (8-16); ASPARTATE AMINO TRANSFERASE 91 IU/L (15-46); BILIRUBIN,INDIRECT 1.1 mg/dl (0-1.1); BILIRUBIN,TOTAL 1.1 mg/dl (0.2-1.3); BLOOD UREA NITROGEN 15 mg/dl (7-20); CALCIUM 9.2 mg/dl (8.4-10.2); CARBON DIOXIDE 22 mmol/L (21-31); CHLORIDE 98 mmol/L (97-110); CREATININE 0.77 mg/dl (0.61-1.24); GLUCOSE 115 mg/dl (70-220); LIPASE 34 U/L (23-300); SODIUM 133 mmol/L (135-144); TOTAL PROTEIN 7.2 g/dl (6.1-8.1)
[2018-01-07 23:05] LABS: INR 1.35; PROTIME 16.9 Sec (11.9-14.9); PT RATIO 1.3
[2018-01-07 23:06] LABS: PARTIAL THROMBOPLASTIN TIME 33.2 Sec (25.0-35.0)
[2018-01-07 23:14] LABS: LACTIC ACID 5.6 mmol/L (0.5-2.0)
[2018-01-07 23:15] LABS: TROPONIN-I 0.032 ng/ml (0.000-0.120)
[2018-01-07 23:44] LABS: ADD UMIC NO; UR ASCORBIC ACID NEGATIVE (NEGATIVE); UR BILIRUBIN (Dip) NEGATIVE (NEGATIVE); UR BLOOD (Dip) NEGATIVE (NEGATIVE); UR CLARITY CLEAR (CLEAR); UR COLOR STRAW (YELLOW); UR GLUCOSE (Dip) NEGATIVE (NEGATIVE); UR KETONES (Dip) NEGATIVE (NEGATIVE); UR LEUKOCYTE ESTERASE (Dip) NEGATIVE Leu/ul (NEGATIVE); UR NITRITE (Dip) NEGATIVE (NEGATIVE); UR SPECIFIC GRAVITY (Dip) 1.005 (1.003-1.030); UR TOTAL PROTEIN (Dip) NEGATIVE (NEGATIVE); UR UROBILINOGEN (Dip) NEGATIVE (NEGATIVE)
[2018-01-08] MEDS: LACTULOSE 30ML CUP NGT (01:23)
[2018-01-08] MEDS ORDERED: GLUCAGON 1 MG INJ IM (04:00)
[2018-01-08] MEDS ORDERED: GLUCOSE GEL 15 GRAM TUBE PO ×2 (04:00)
[2018-01-08] MEDS ORDERED: DEXTROSE 50% 50 ML SYRINGE IV ×2 (04:00)
[2018-01-08] MEDS ORDERED: GLUCOSE GEL 15 GRAM TUBE BUCCAL (04:00)
[2018-01-08] MEDS: ONDANSETRON 4 MG INJ IV (04:23)
[2018-01-08] MEDS: morphine 2 MG INJ IV ×4 (04:24→18:39)
[2018-01-08] MEDS: DEXTROSE 5% 1,000 ML IV (04:25)
[2018-01-08] MEDS: INSULIN ASPART [NOVOLOG] 3 ML PEN SC ×5 (05:23→21:01)
[2018-01-08] MEDS: CEFTRIAXONE 1 GM/50 ML (PMX) 50 ML IVPB (05:25)
[2018-01-08] MEDS: LACTULOSE 30ML CUP PO ×2 (05:25→23:02)
[2018-01-08 06:50] LABS: LACTIC ACID 6.4 mmol/L (0.5-2.0)
[2018-01-08 06:58] LABS: ADD MAN DIFF? NO
[2018-01-08 07:34] LABS: BASOPHILS % 0.4 % (0.0-2.0); EOSINOPHILS % 0.4 % (0.0-7.0); HEMATOCRIT 29.6 % (42.0-52.0); HEMOGLOBIN 10.2 g/dl (14.0-18.0); LYMPHOCYTES # 0.8 10^3/ul (0.8-2.9); LYMPHOCYTES % 9.9 % (15.0-51.0); MEAN CORPUSCULAR HEMOGLOBIN 31.3 pg (29.0-33.0); MEAN CORPUSCULAR HGB CONC 34.5 g/dl (32.0-37.0); MEAN CORPUSCULAR VOLUME 90.8 fl (82.0-101.0); MEAN PLATELET VOLUME 10.3 fl (7.4-10.4); MONOCYTE # 0.6 10^3/ul (0.3-0.9); MONOCYTES % 7.7 % (0.0-11.0); NEUTROPHIL # 6.1 10^3/ul (1.6-7.5); NEUTROPHILS % 81.1 % (39.0-77.0); PLATELET COUNT 106 10^3/UL (140-415); RED BLOOD COUNT 3.26 10^6/ul (4.70-6.10); RED CELL DISTRIBUTION WIDTH 14.7 % (11.5-14.5)
[2018-01-08 07:34] LABS: WHITE BLOOD COUNT 7.6 10^3/ul (4.8-10.8)
[2018-01-08] MEDS: EZETIMIBE 10 MG TAB PO (08:13)
[2018-01-08] MEDS: RIFAXIMIN 550 MG TAB PO ×2 (08:13→20:31)
[2018-01-08] MEDS: SPIRONOLACTONE 50 MG TAB PO ×2 (08:14→20:32)
[2018-01-08] MEDS: FERROUS SULFATE (EC) 325 MG TAB PO (08:14)
[2018-01-08] MEDS: CLOPIDOGREL 75 MG TAB PO (08:14)
[2018-01-08 08:21] LABS: ALANINE AMINOTRANSFERASE 72 IU/L (13-69); ALBUMIN 2.1 g/dl (3.3-4.9); ALBUMIN/GLOBULIN RATIO 0.65; ALKALINE PHOSPHATASE 209 IU/L (42-121); ANION GAP 14 (8-16); ASPARTATE AMINO TRANSFERASE 72 IU/L (15-46); BILIRUBIN,INDIRECT 0.7 mg/dl (0-1.1); BILIRUBIN,TOTAL 0.7 mg/dl (0.2-1.3); BLOOD UREA NITROGEN 15 mg/dl (7-20); CALCIUM 8.5 mg/dl (8.4-10.2); CARBON DIOXIDE 24 mmol/L (21-31); CHLORIDE 100 mmol/L (97-110); CREATININE 0.77 mg/dl (0.61-1.24); GLUCOSE 240 mg/dl (70-220); POTASSIUM 5.1 mmol/L (3.5-5.1); SODIUM 133 mmol/L (135-144); TOTAL PROTEIN 5.3 g/dl (6.1-8.1)
[2018-01-08 08:36] LABS: LACTIC ACID 4.8 mmol/L (0.5-2.0)
[2018-01-08] MEDS ORDERED: ALBUTEROL/IPRATROPIUM (NEB) 3 ML AMP HHN (09:30)
[2018-01-08] MEDS: SOD CHLORIDE 0.9% 1,000 ML IV ×2 (10:20→21:54)
[2018-01-08] MEDS: LACTULOSE ENEMA 1,000 ML BTL PR ×2 (12:29→17:44)
[2018-01-08 12:45] LABS: LACTIC ACID 4.5 mmol/L (0.5-2.0)
[2018-01-08] MEDS: ALBUTEROL/IPRATROPIUM (NEB) 3 ML AMP HHN ×2 (14:51→19:38)
[2018-01-08] MEDS: PANTOPRAZOLE 40 MG INJ IV (17:44)
[2018-01-08] MEDS: morphine LIQ (10 MG/5 ML) CUP PO (21:53)
[2018-01-08] MEDS: INSULIN GLARGINE [LANtus] 3 ML PEN SC (23:06)
[2018-01-09] MEDS: morphine LIQ (10 MG/5 ML) CUP PO ×4 (01:36→14:12)
[2018-01-09] MEDS: ACCU-CHEK XX (01:36)
[2018-01-09] MEDS ORDERED: ACCU-CHEK XX (02:00)
[2018-01-09] MEDS: PANTOPRAZOLE 40 MG INJ IV (05:53)
[2018-01-09] MEDS: LACTULOSE 30ML CUP PO ×2 (05:53→11:57)
[2018-01-09] MEDS: CEFTRIAXONE 1 GM/50 ML (PMX) 50 ML IVPB (05:54)
[2018-01-09 06:57] LABS: ADD MAN DIFF? NO
[2018-01-09 07:05] LABS: WHITE BLOOD COUNT 6.6 10^3/ul (4.8-10.8)
[2018-01-09 07:05] LABS: BASOPHIL # 0.1 10^3/ul (0.0-0.1); BASOPHILS % 1.1 % (0.0-2.0); EOSINOPHILS # 0.2 10^3/ul (0.0-0.5); EOSINOPHILS % 3.1 % (0.0-7.0); HEMATOCRIT 31.6 % (42.0-52.0); HEMOGLOBIN 10.7 g/dl (14.0-18.0); LYMPHOCYTES # 1.3 10^3/ul (0.8-2.9); LYMPHOCYTES % 19.8 % (15.0-51.0); MEAN CORPUSCULAR HEMOGLOBIN 30.8 pg (29.0-33.0); MEAN CORPUSCULAR HGB CONC 33.9 g/dl (32.0-37.0); MEAN CORPUSCULAR VOLUME 91.1 fl (82.0-101.0); MONOCYTE # 0.8 10^3/ul (0.3-0.9); MONOCYTES % 12.4 % (0.0-11.0); NEUTROPHIL # 4.2 10^3/ul (1.6-7.5); NEUTROPHILS % 63.3 % (39.0-77.0); PLATELET COUNT 120 10^3/UL (140-415); RED BLOOD COUNT 3.47 10^6/ul (4.70-6.10); RED CELL DISTRIBUTION WIDTH 14.8 % (11.5-14.5)
[2018-01-09] MEDS: ALBUTEROL/IPRATROPIUM (NEB) 3 ML AMP HHN ×2 (07:17→13:55)
[2018-01-09] MEDS: Insulin NOVOLOG SS MILD Algorithm (SS with meals and bedtime) SC ×2 (07:25→11:56)
[2018-01-09 07:41] LABS: AMMONIA 29 umol/l (9-30)
[2018-01-09 07:49] LABS: LACTIC ACID 3.2 mmol/L (0.5-2.0)
[2018-01-09] MEDS ORDERED: INSULIN ASPART [NOVOLOG] 3 ML PEN SC (07:55)
[2018-01-09 07:57] LABS: ANION GAP 13 (8-16); BLOOD UREA NITROGEN 9 mg/dl (7-20); CALCIUM 8.4 mg/dl (8.4-10.2); CARBON DIOXIDE 25 mmol/L (21-31); CHLORIDE 109 mmol/L (97-110); CREATININE 0.65 mg/dl (0.61-1.24); MAGNESIUM 1.4 mg/dl (1.7-2.5); PHOSPHORUS 3.2 mg/dl (2.5-4.9); POTASSIUM 3.5 mmol/L (3.5-5.1); SODIUM 143 mmol/L (135-144)
[2018-01-09 08:02] LABS: GLUCOSE 47 mg/dl (70-220)
[2018-01-09] MEDS: CLOPIDOGREL 75 MG TAB PO (08:41)
[2018-01-09] MEDS: FERROUS SULFATE (EC) 325 MG TAB PO (08:41)
[2018-01-09] MEDS: SPIRONOLACTONE 50 MG TAB PO (08:42)
[2018-01-09] MEDS: EZETIMIBE 10 MG TAB PO (08:42)
[2018-01-09] MEDS: RIFAXIMIN 550 MG TAB PO (08:42)
[2018-01-09] MEDS: MAGNESIUM SULFATE 4 GM/100 ML 100 ML IVPB (10:03)
[2018-01-09] MEDS: POTASSIUM CHLORIDE (SR) 20 MEQ TAB PO (10:03)
[2018-01-09] MEDS: SOD CHLORIDE 0.9% 1,000 ML IV (10:23)
== END 2018-01-09 16:31 | disposition home or self-care (01) | DRG 441 ==
LOC: TEL 23:23 → E/R 21:25
PROVIDERS: Internal Medicine
DX: K72.90 Hepatic failure, unspecified without coma (principal); J18.9 Pneumonia, unspecified organism; E72.20 Disorder of urea cycle metabolism, unspecified; K70.31 Alcoholic cirrhosis of liver with ascites; I25.10 Atherosclerotic heart disease of native coronary artery without angina pectoris; I10 Essential (primary) hypertension; G89.29 Other chronic pain; E11.9 Type 2 diabetes mellitus without complications; R91.1 Solitary pulmonary nodule
CPT/HCPCS: 71045; 76705; 80048; 80053; 81003; 82140; 82150; 82962; 83605; 83690; 83735; 84100; 84484; 85025; 85610; 85730; 87040; 87081; 87086; 92610; 93005; 94640; 94664; 96374; 96375; 99291-25

== ENCOUNTER 2018-04-02 01:00 | Inpatient (IN) | payer MEDICAID ==
[2018-04-02] MEDS: SOD CHLORIDE 0.9% 1,000 ML IV (02:04)
[2018-04-02] MEDS: ONDANSETRON 4 MG INJ IV (02:04)
[2018-04-02] MEDS: morphine 4 MG/ML VIAL IV (02:04)
[2018-04-02 02:07] LABS: ADD MAN DIFF? NO
[2018-04-02 02:08] LABS: ABNORMAL IP MESSAGE 1; BASOPHIL # 0.1 10^3/ul (0.0-0.1); BASOPHILS % 0.4 % (0.0-2.0); EOSINOPHILS % 0.3 % (0.0-7.0); HEMATOCRIT 36.1 % (42.0-52.0); HEMOGLOBIN 12.7 g/dl (14.0-18.0); LYMPHOCYTES # 0.5 10^3/ul (0.8-2.9); LYMPHOCYTES % 3.6 % (15.0-51.0); MEAN CORPUSCULAR HEMOGLOBIN 32.1 pg (29.0-33.0); MEAN CORPUSCULAR HGB CONC 35.2 g/dl (32.0-37.0); MEAN CORPUSCULAR VOLUME 91.2 fl (82.0-101.0); MEAN PLATELET VOLUME 10.5 fl (7.4-10.4); MONOCYTE # 1.1 10^3/ul (0.3-0.9); MONOCYTES % 8.5 % (0.0-11.0); NEUTROPHIL # 11.5 10^3/ul (1.6-7.5); NEUTROPHILS % 86.6 % (39.0-77.0); PLATELET COUNT 177 10^3/UL (140-415); POSITIVE DIFF @See below; RED BLOOD COUNT 3.96 10^6/ul (4.70-6.10); RED CELL DISTRIBUTION WIDTH 16.6 % (11.5-14.5)
[2018-04-02 02:08] LABS: WHITE BLOOD COUNT 13.3 10^3/ul (4.8-10.8)
[2018-04-02 02:29] LABS: INR 1.21; PARTIAL THROMBOPLASTIN TIME 31.7 Sec (25.0-35.0); PROTIME 15.5 Sec (11.9-14.9); PT RATIO 1.2
[2018-04-02 02:41] LABS: AMMONIA 72 umol/l (9-30)
[2018-04-02 02:58] LABS: ALANINE AMINOTRANSFERASE 108 IU/L (13-69); ALBUMIN 3.2 g/dl (3.3-4.9); ALBUMIN/GLOBULIN RATIO 0.78; ALKALINE PHOSPHATASE 274 IU/L (42-121); ANION GAP 17 (8-16); ASPARTATE AMINO TRANSFERASE 169 IU/L (15-46); BILIRUBIN,INDIRECT 1.1 mg/dl (0-1.1); BILIRUBIN,TOTAL 1.1 mg/dl (0.2-1.3); BLOOD UREA NITROGEN 17 mg/dl (7-20); CALCIUM 9.5 mg/dl (8.4-10.2); CARBON DIOXIDE 23 mmol/L (21-31); CHLORIDE 98 mmol/L (97-110); GLUCOSE 133 mg/dl (70-220); POTASSIUM 4.4 mmol/L (3.5-5.1); SODIUM 134 mmol/L (135-144); TOTAL PROTEIN 7.3 g/dl (6.1-8.1)
[2018-04-02 03:10] LABS: TROPONIN-I 0.015 ng/ml (0.000-0.120)
[2018-04-02] MEDS: SODIUM CHLORIDE 0.9% 1L BAG IV* (03:25)
[2018-04-02] MEDS: LACTULOSE 30ML CUP PO ×4 (03:49→17:57)
[2018-04-02] MEDS: HYDROmorphONE 0.5 MG/0.5 ML SYG IV ×3 (04:06→10:14)
[2018-04-02 04:11] LABS: LACTIC ACID 3.8 mmol/L (0.5-2.0)
[2018-04-02 04:48] LABS: ADD UMIC YES; UR ASCORBIC ACID 40 mg/dL (NEGATIVE); UR BILIRUBIN (Dip) NEGATIVE (NEGATIVE); UR BLOOD (Dip) 1+ mg/dL (NEGATIVE); UR CLARITY SLIGHTLY CLOUDY (CLEAR); UR COLOR YELLOW (YELLOW); UR GLUCOSE (Dip) NEGATIVE (NEGATIVE); UR KETONES (Dip) NEGATIVE (NEGATIVE); UR LEUKOCYTE ESTERASE (Dip) NEGATIVE Leu/ul (NEGATIVE); UR MUCUS FEW /HPF (NONE SEEN); UR NITRITE (Dip) NEGATIVE (NEGATIVE); UR RBC 12 /HPF (0-5); UR SPECIFIC GRAVITY (Dip) 1.015 (1.003-1.030); UR TOTAL PROTEIN (Dip) NEGATIVE (NEGATIVE); UR UROBILINOGEN (Dip) NEGATIVE (NEGATIVE); UR WBC 4 /HPF (0-5)
[2018-04-02] MEDS ORDERED: ACETAMINOPHEN 325 MG TAB PO (05:00)
[2018-04-02] MEDS ORDERED: ONDANSETRON 4 MG INJ IV (05:00)
[2018-04-02] MEDS ORDERED: ALBUTEROL/IPRATROPIUM (NEB) 3 ML AMP HHN (05:00)
[2018-04-02] MEDS ORDERED: NACL 0.9% 3 ML SYG IV (05:00)
[2018-04-02] MEDS ORDERED: PANTOPRAZOLE 40 MG INJ IV (06:00)
[2018-04-02 06:43] LABS: LACTIC ACID 3.7 mmol/L (0.5-2.0)
[2018-04-02] MEDS: PANTOPRAZOLE (EC) 40 MG TAB PO ×2 (07:47→18:22)
[2018-04-02] MEDS: CLOPIDOGREL 75 MG TAB PO (08:47)
[2018-04-02 08:59] LABS: LACTIC ACID 3.1 mmol/L (0.5-2.0)
[2018-04-02] MEDS ORDERED: GLUCOSE GEL 15 GRAM TUBE BUCCAL (09:30)
[2018-04-02] MEDS ORDERED: DEXTROSE 50% 50 ML SYRINGE IV ×2 (09:30)
[2018-04-02] MEDS ORDERED: GLUCOSE GEL 15 GRAM TUBE PO ×2 (09:30)
[2018-04-02] MEDS ORDERED: GLUCAGON 1 MG INJ IM (09:30)
[2018-04-02] MEDS: EZETIMIBE 10 MG TAB PO (10:15)
[2018-04-02] MEDS: RIFAXIMIN 550 MG TAB PO ×2 (10:15→20:38)
[2018-04-02] MEDS: PROPRANOLOL 10 MG TAB PO ×2 (10:16→20:38)
[2018-04-02] MEDS: SPIRONOLACTONE 50 MG TAB PO ×2 (10:16→20:38)
[2018-04-02] MEDS: morphine 2 MG INJ IV ×2 (16:22→18:29)
[2018-04-02] MEDS: ACCU-CHEK XX (20:48)
[2018-04-02] MEDS: INSULIN DETEMIR [LEVEMIR] (100 UNITS/ML) SYG SC (20:48)
[2018-04-02] MEDS: SOD CHLORIDE 0.9% 250 ML IV (21:46)
[2018-04-03] MEDS: LACTULOSE 30ML CUP PO ×4 (00:20→17:08)
[2018-04-03] MEDS: MIDODRINE 5 MG TAB PO ×3 (00:20→16:53)
[2018-04-03] MEDS: morphine 2 MG INJ IV ×3 (00:21→11:45)
[2018-04-03] MEDS: ACCU-CHEK XX (02:45)
[2018-04-03] MEDS: PANTOPRAZOLE (EC) 40 MG TAB PO ×2 (06:03→17:08)
[2018-04-03 06:18] LABS: ABNORMAL IP MESSAGE 1; HEMATOCRIT 27.9 % (42.0-52.0); HEMOGLOBIN 9.9 g/dl (14.0-18.0); MEAN CORPUSCULAR HGB CONC 35.5 g/dl (32.0-37.0); MEAN CORPUSCULAR VOLUME 90.3 fl (82.0-101.0); MEAN PLATELET VOLUME 11.1 fl (7.4-10.4); PLATELET COUNT 89 10^3/UL (140-415); POSITIVE DIFF @See below; RED BLOOD COUNT 3.09 10^6/ul (4.70-6.10); RED CELL DISTRIBUTION WIDTH 16.5 % (11.5-14.5)
[2018-04-03 06:22] LABS: ADD MAN DIFF? YES
[2018-04-03 06:41] LABS: AMMONIA 96 umol/l (9-30)
[2018-04-03 07:18] LABS: ALANINE AMINOTRANSFERASE 80 IU/L (13-69); ALBUMIN 2.2 g/dl (3.3-4.9); ALBUMIN/GLOBULIN RATIO 0.73; ALKALINE PHOSPHATASE 164 IU/L (42-121); ANION GAP 12 (8-16); ASPARTATE AMINO TRANSFERASE 111 IU/L (15-46); BILIRUBIN,INDIRECT 0.6 mg/dl (0-1.1); BILIRUBIN,TOTAL 0.6 mg/dl (0.2-1.3); BLOOD UREA NITROGEN 11 mg/dl (7-20); CALCIUM 8.5 mg/dl (8.4-10.2); CARBON DIOXIDE 20 mmol/L (21-31); CHLORIDE 103 mmol/L (97-110); CREATININE 0.71 mg/dl (0.61-1.24); GLUCOSE 186 mg/dl (70-220); POTASSIUM 5.2 mmol/L (3.5-5.1); SODIUM 130 mmol/L (135-144); TOTAL PROTEIN 5.2 g/dl (6.1-8.1)
[2018-04-03] MEDS: CLOPIDOGREL 75 MG TAB PO (08:08)
[2018-04-03] MEDS: EZETIMIBE 10 MG TAB PO (08:08)
[2018-04-03] MEDS: SPIRONOLACTONE 50 MG TAB PO ×2 (08:08→20:55)
[2018-04-03] MEDS: RIFAXIMIN 550 MG TAB PO ×2 (08:09→20:57)
[2018-04-03] MEDS: PROPRANOLOL 10 MG TAB PO ×2 (08:09→20:01)
[2018-04-03] MEDS: INSULIN ASPART [NOVOLOG] 3 ML PEN SC ×4 (08:14→21:39)
[2018-04-03 08:44] LABS: ANISOCYTOSIS 1+ (0-0); BASOPHILS % (M) 1 % (0-2); EOSINOPHILS % (M) 8 % (0-7); LYMPHOCYTES #M 0.4 10^3/ul (0.8-2.9); LYMPHOCYTES % (M) 8 % (15-51); MONOCYTE #M 0.8 10^3/ul (0.3-0.9); MONOCYTES % (M) 14 % (0-11); PLATELET ESTIMATE DECREASED; POLYCHROMASIA 1+ (0-0); SEGMENTED NEUTROPHILS (M) % 69 % (39-77); SMUDGE%M 6 % (0-0); SPHEROCYTES 1+ (0-0); TARGET CELLS 1+ (0-0)
[2018-04-03] MEDS: HYDROmorphONE 0.5 MG/0.5 ML SYG IV (08:48)
[2018-04-03] MEDS: morphine LIQ (10 MG/5 ML) CUP PO (17:08)
[2018-04-03] MEDS: INSULIN DETEMIR [LEVEMIR] (100 UNITS/ML) SYG SC (21:37)
[2018-04-04] MEDS: LACTULOSE 30ML CUP PO ×4 (00:29→17:14)
[2018-04-04] MEDS: ACCU-CHEK XX (02:00)
[2018-04-04] MEDS: morphine LIQ (10 MG/5 ML) CUP PO ×3 (02:42→16:01)
[2018-04-04 06:18] LABS: ADD MAN DIFF? NO
[2018-04-04] MEDS: PANTOPRAZOLE (EC) 40 MG TAB PO ×2 (06:18→17:13)
[2018-04-04 06:25] LABS: WHITE BLOOD COUNT 6.6 10^3/ul (4.8-10.8)
[2018-04-04 06:25] LABS: ABNORMAL IP MESSAGE 1; BASOPHIL # 0.1 10^3/ul (0.0-0.1); BASOPHILS % 0.9 % (0.0-2.0); EOSINOPHILS % 0.3 % (0.0-7.0); HEMATOCRIT 29.7 % (42.0-52.0); HEMOGLOBIN 10.3 g/dl (14.0-18.0); LYMPHOCYTES # 0.4 10^3/ul (0.8-2.9); LYMPHOCYTES % 6.2 % (15.0-51.0); MEAN CORPUSCULAR HEMOGLOBIN 31.6 pg (29.0-33.0); MEAN CORPUSCULAR HGB CONC 34.7 g/dl (32.0-37.0); MEAN CORPUSCULAR VOLUME 91.1 fl (82.0-101.0); MEAN PLATELET VOLUME 10.9 fl (7.4-10.4); MONOCYTE # 0.7 10^3/ul (0.3-0.9); MONOCYTES % 10.3 % (0.0-11.0); NEUTROPHIL # 5.4 10^3/ul (1.6-7.5); NEUTROPHILS % 81.1 % (39.0-77.0); PLATELET COUNT 98 10^3/UL (140-415); POSITIVE DIFF @See below; RED BLOOD COUNT 3.26 10^6/ul (4.70-6.10); RED CELL DISTRIBUTION WIDTH 16.5 % (11.5-14.5)
[2018-04-04 06:31] LABS: HEMOGLOBIN A1C 6.8 % (0-5.9)
[2018-04-04 06:55] LABS: INR 1.42; PROTIME 17.6 Sec (11.9-14.9); PT RATIO 1.4
[2018-04-04 06:56] LABS: PARTIAL THROMBOPLASTIN TIME 37.1 Sec (25.0-35.0)
[2018-04-04 06:59] LABS: ALANINE AMINOTRANSFERASE 83 IU/L (13-69); ALBUMIN 2.2 g/dl (3.3-4.9); ALBUMIN/GLOBULIN RATIO 0.66; ALKALINE PHOSPHATASE 203 IU/L (42-121); ANION GAP 13 (8-16); ASPARTATE AMINO TRANSFERASE 93 IU/L (15-46); BLOOD UREA NITROGEN 10 mg/dl (7-20); CALCIUM 8.6 mg/dl (8.4-10.2); CARBON DIOXIDE 19 mmol/L (21-31); CHLORIDE 101 mmol/L (97-110); GLUCOSE 127 mg/dl (70-220); LIPASE 26 U/L (23-300); POTASSIUM 5.6 mmol/L (3.5-5.1); SODIUM 127 mmol/L (135-144); TOTAL PROTEIN 5.5 g/dl (6.1-8.1)
[2018-04-04 07:00] LABS: AMYLASE < 30 U/L (11-123)
[2018-04-04 07:03] LABS: CHOLESTEROL 55 mg/dl (100-200); HDL CHOLESTEROL 27 mg/dl (28-71); LDL CHOLESTEROL,CALCULATED 11 mg/dl; MAGNESIUM 1.9 mg/dl (1.7-2.5); TRIGLYCERIDES 85 mg/dl (0-149)
[2018-04-04 07:09] LABS: AMMONIA 92 umol/l (9-30)
[2018-04-04] MEDS: INSULIN ASPART [NOVOLOG] 3 ML PEN SC ×4 (08:00→20:52)
[2018-04-04] MEDS: SPIRONOLACTONE 50 MG TAB PO (09:00)
[2018-04-04] MEDS: PROPRANOLOL 10 MG TAB PO ×2 (09:00→20:25)
[2018-04-04] MEDS: EZETIMIBE 10 MG TAB PO (09:54)
[2018-04-04] MEDS: CLOPIDOGREL 75 MG TAB PO (09:54)
[2018-04-04] MEDS: RIFAXIMIN 550 MG TAB PO ×2 (09:54→20:25)
[2018-04-04] MEDS: MIDODRINE 5 MG TAB PO ×3 (09:59→17:03)
[2018-04-04] MEDS: HYDROmorphONE 0.5 MG/0.5 ML SYG IV (12:51)
[2018-04-04 15:07] LABS: FREE T4 (FREE THYROXINE) 1.32 ng/dl (0.64-1.79)
[2018-04-04] MEDS: NA POLYST SULFON 15 GM/60 ML BTL PO (15:53)
[2018-04-04] MEDS: ONDANSETRON 4 MG INJ IV (16:01)
[2018-04-04 16:33] LABS: OSMOLALITY 267 mOsm/kg (280-295)
[2018-04-04] MEDS: SODIUM PHOSPHATE 15 MMOL in SOD CHLORIDE 0.9% 250 ML IVPB (17:01)
[2018-04-04] MEDS: traMADol 50 MG TAB PO (20:28)
[2018-04-04] MEDS: INSULIN DETEMIR [LEVEMIR] (100 UNITS/ML) SYG SC (20:52)
[2018-04-05] MEDS: LACTULOSE 30ML CUP PO ×2 (00:01→05:22)
[2018-04-05] MEDS: ACCU-CHEK XX (01:52)
[2018-04-05] MEDS: morphine 2 MG INJ IV (02:15)
[2018-04-05] MEDS: traMADol 50 MG TAB PO (04:21)
[2018-04-05] MEDS: ONDANSETRON 4 MG INJ IV (04:21)
[2018-04-05] MEDS: PANTOPRAZOLE (EC) 40 MG TAB PO ×3 (05:22→18:25)
[2018-04-05] MEDS: INSULIN ASPART [NOVOLOG] 3 ML PEN SC ×4 (08:00→20:44)
[2018-04-05 08:53] LABS: ADD MAN DIFF? NO
[2018-04-05] MEDS: EZETIMIBE 10 MG TAB PO (08:57)
[2018-04-05] MEDS: RIFAXIMIN 550 MG TAB PO ×3 (08:57→21:00)
[2018-04-05] MEDS: CLOPIDOGREL 75 MG TAB PO (08:57)
[2018-04-05] MEDS: PROPRANOLOL 10 MG TAB PO ×3 (08:58→21:00)
[2018-04-05] MEDS: MIDODRINE 5 MG TAB PO ×2 (08:58→13:00)
[2018-04-05 09:02] LABS: BASOPHIL # 0.1 10^3/ul (0.0-0.1); BASOPHILS % 0.5 % (0.0-2.0); EOSINOPHILS # 0.1 10^3/ul (0.0-0.5); EOSINOPHILS % 0.9 % (0.0-7.0); HEMATOCRIT 33.8 % (42.0-52.0); HEMOGLOBIN 12.2 g/dl (14.0-18.0); LYMPHOCYTES # 1.1 10^3/ul (0.8-2.9); LYMPHOCYTES % 10.9 % (15.0-51.0); MEAN CORPUSCULAR HEMOGLOBIN 31.9 pg (29.0-33.0); MEAN CORPUSCULAR HGB CONC 36.1 g/dl (32.0-37.0); MEAN CORPUSCULAR VOLUME 88.5 fl (82.0-101.0); MEAN PLATELET VOLUME 10.6 fl (7.4-10.4); MONOCYTES % 10.5 % (0.0-11.0); NEUTROPHIL # 7.6 10^3/ul (1.6-7.5); NEUTROPHILS % 76.2 % (39.0-77.0); PLATELET COUNT 149 10^3/UL (140-415); RED BLOOD COUNT 3.82 10^6/ul (4.70-6.10); RED CELL DISTRIBUTION WIDTH 16.5 % (11.5-14.5)
[2018-04-05 09:02] LABS: WHITE BLOOD COUNT 9.9 10^3/ul (4.8-10.8)
[2018-04-05 09:27] LABS: AMMONIA 255 umol/l (9-30)
[2018-04-05 09:45] LABS: ALANINE AMINOTRANSFERASE 78 IU/L (13-69); ALBUMIN 2.5 g/dl (3.3-4.9); ALBUMIN/GLOBULIN RATIO 0.71; ALKALINE PHOSPHATASE 214 IU/L (42-121); ANION GAP 12 (8-16); ASPARTATE AMINO TRANSFERASE 95 IU/L (15-46); BILIRUBIN,INDIRECT 0.9 mg/dl (0-1.1); BILIRUBIN,TOTAL 0.9 mg/dl (0.2-1.3); BLOOD UREA NITROGEN 14 mg/dl (7-20); CALCIUM 8.5 mg/dl (8.4-10.2); CARBON DIOXIDE 16 mmol/L (21-31); CHLORIDE 107 mmol/L (97-110); GLUCOSE 104 mg/dl (70-220); POTASSIUM 5.6 mmol/L (3.5-5.1); SODIUM 129 mmol/L (135-144)
[2018-04-05 09:58] LABS: PHOSPHORUS 3.2 mg/dl (2.5-4.9)
[2018-04-05 09:58] LABS: MAGNESIUM 1.9 mg/dl (1.7-2.5)
[2018-04-05] MEDS ORDERED: DEXTROSE 50% 50 ML SYRINGE IV (10:30)
[2018-04-05] MEDS: LACTULOSE ENEMA 1,000 ML BTL PR ×3 (12:48→23:51)
[2018-04-05] MEDS: ALBUMIN HUMAN 25% 100 ML IV ×2 (13:21→19:24)
[2018-04-05] MEDS: DEXTROSE 50% 50 ML SYRINGE IV (13:34)
[2018-04-05] MEDS: INSULIN REGULAR, HUMAN 100 UNIT/1 ML 3ML VIAL IVP (14:05)
[2018-04-05 14:50] LABS: ANION GAP 15 (8-16); BLOOD UREA NITROGEN 14 mg/dl (7-20); CALCIUM 8.8 mg/dl (8.4-10.2); CARBON DIOXIDE 17 mmol/L (21-31); CHLORIDE 105 mmol/L (97-110); CREATININE 0.72 mg/dl (0.61-1.24); GLUCOSE 220 mg/dl (70-220); SODIUM 132 mmol/L (135-144)
[2018-04-05 18:43] LABS: ADD UMIC YES; UR ASCORBIC ACID NEGATIVE (NEGATIVE); UR BACTERIA FEW /HPF (NONE SEEN); UR BILIRUBIN (Dip) NEGATIVE (NEGATIVE); UR BLOOD (Dip) 1+ mg/dL (NEGATIVE); UR CLARITY CLEAR (CLEAR); UR COLOR YELLOW (YELLOW); UR GLUCOSE (Dip) 1+ mg/dL (NEGATIVE); UR KETONES (Dip) NEGATIVE (NEGATIVE); UR LEUKOCYTE ESTERASE (Dip) TRACE Leu/ul (NEGATIVE); UR NITRITE (Dip) NEGATIVE (NEGATIVE); UR RBC 0 /HPF (0-5); UR SPECIFIC GRAVITY (Dip) 1.005 (1.003-1.030); UR TOTAL PROTEIN (Dip) NEGATIVE (NEGATIVE); UR UROBILINOGEN (Dip) NEGATIVE (NEGATIVE); UR WBC 6 /HPF (0-5)
[2018-04-05 19:17] LABS: SODIUM,URINE RANDOM 95 mmol/L (30-90)
[2018-04-05 19:17] LABS: CREATININE,URINE RANDOM 13.65 mg/dl (20-370)
[2018-04-05] MEDS: INSULIN DETEMIR [LEVEMIR] (100 UNITS/ML) SYG SC (20:00)
[2018-04-05 23:32] LABS: OSMOLALITY,URINE 253 mOsm/kg (250-1200)
[2018-04-06] MEDS: ACCU-CHEK XX (00:21)
[2018-04-06] MEDS: ALBUMIN HUMAN 25% 100 ML IV ×3 (02:16→17:27)
[2018-04-06] MEDS: PANTOPRAZOLE (EC) 40 MG TAB PO ×2 (05:11→17:28)
[2018-04-06] MEDS: LACTULOSE ENEMA 1,000 ML BTL PR ×3 (05:11→17:28)
[2018-04-06 06:32] LABS: ADD MAN DIFF? NO
[2018-04-06 06:41] LABS: BASOPHILS % 0.5 % (0.0-2.0); EOSINOPHILS # 0.1 10^3/ul (0.0-0.5); EOSINOPHILS % 1.1 % (0.0-7.0); HEMATOCRIT 32.1 % (42.0-52.0); HEMOGLOBIN 11.1 g/dl (14.0-18.0); LYMPHOCYTES # 0.8 10^3/ul (0.8-2.9); LYMPHOCYTES % 10.3 % (15.0-51.0); MEAN CORPUSCULAR HEMOGLOBIN 31.2 pg (29.0-33.0); MEAN CORPUSCULAR HGB CONC 34.6 g/dl (32.0-37.0); MEAN CORPUSCULAR VOLUME 90.2 fl (82.0-101.0); MEAN PLATELET VOLUME 10.5 fl (7.4-10.4); MONOCYTE # 0.9 10^3/ul (0.3-0.9); MONOCYTES % 11.6 % (0.0-11.0); NEUTROPHIL # 6.1 10^3/ul (1.6-7.5); NEUTROPHILS % 75.9 % (39.0-77.0); PLATELET COUNT 109 10^3/UL (140-415); RED BLOOD COUNT 3.56 10^6/ul (4.70-6.10); RED CELL DISTRIBUTION WIDTH 17.1 % (11.5-14.5)
[2018-04-06 06:41] LABS: WHITE BLOOD COUNT 8.1 10^3/ul (4.8-10.8)
[2018-04-06 06:57] LABS: INR 1.42; PROTIME 17.6 Sec (11.9-14.9); PT RATIO 1.4
[2018-04-06 06:58] LABS: ALANINE AMINOTRANSFERASE 73 IU/L (13-69); ALBUMIN/GLOBULIN RATIO 1.42; ALKALINE PHOSPHATASE 175 IU/L (42-121); ANION GAP 19 (8-16); ASPARTATE AMINO TRANSFERASE 108 IU/L (15-46); BILIRUBIN,INDIRECT 1.9 mg/dl (0-1.1); BILIRUBIN,TOTAL 1.9 mg/dl (0.2-1.3); BLOOD UREA NITROGEN 14 mg/dl (7-20); CALCIUM 10.3 mg/dl (8.4-10.2); CARBON DIOXIDE 13 mmol/L (21-31); CHLORIDE 111 mmol/L (97-110); CREATININE 0.59 mg/dl (0.61-1.24); GLUCOSE 124 mg/dl (70-220); POTASSIUM 5.2 mmol/L (3.5-5.1); SODIUM 138 mmol/L (135-144); TOTAL PROTEIN 6.8 g/dl (6.1-8.1)
[2018-04-06 07:15] LABS: AMMONIA 79 umol/l (9-30); PHOSPHORUS 3.7 mg/dl (2.5-4.9)
[2018-04-06] MEDS: INSULIN ASPART [NOVOLOG] 3 ML PEN SC ×4 (08:00→21:12)
[2018-04-06 08:38] LABS: AADO2 Arterial 0.8 mmHg (7.0-24.0); Arterial Base Excess -8.3 mmol/L (-3.0-3); Arterial Blood Gas Oxygen Sat 98.3 mmHG (95.0-98.0); Arterial COHb 0.2 % (0.0-3.0); Arterial Fraction of Oxyhgb 97.8 % (93.0-99.0); Arterial HCO3 11.6 mmol/L (22.0-26.0); Arterial MetHb 0.3 % (0.0-1.5); Arterial Total Hemglobin 11.9 g/dl (12.0-18.0); Arterial pCO2 14.1 mmhg (35-45); MODE ROOM AIR; Site Right Brachial
[2018-04-06] MEDS: EZETIMIBE 10 MG TAB PO (09:08)
[2018-04-06] MEDS: RIFAXIMIN 550 MG TAB PO ×2 (09:09→20:53)
[2018-04-06] MEDS: CLOPIDOGREL 75 MG TAB PO (09:10)
[2018-04-06] MEDS: PROPRANOLOL 10 MG TAB PO ×2 (09:10→20:54)
[2018-04-06] MEDS: morphine LIQ (10 MG/5 ML) CUP PO ×3 (17:31→23:13)
[2018-04-06] MEDS: INSULIN DETEMIR [LEVEMIR] (100 UNITS/ML) SYG SC (21:10)
[2018-04-07] MEDS: LACTULOSE ENEMA 1,000 ML BTL PR ×2 (00:58→06:23)
[2018-04-07] MEDS: ALBUMIN HUMAN 25% 100 ML IV (01:15)
[2018-04-07] MEDS: morphine LIQ (10 MG/5 ML) CUP PO ×4 (02:12→20:37)
[2018-04-07] MEDS: ACCU-CHEK XX (02:14)
[2018-04-07] MEDS: PANTOPRAZOLE (EC) 40 MG TAB PO ×2 (06:23→17:26)
[2018-04-07 06:24] LABS: ADD MAN DIFF? NO; BASOPHIL # 0.1 10^3/ul (0.0-0.1); BASOPHILS % 0.9 % (0.0-2.0); EOSINOPHILS # 0.1 10^3/ul (0.0-0.5); EOSINOPHILS % 1.6 % (0.0-7.0); HEMATOCRIT 29.1 % (42.0-52.0); HEMOGLOBIN 10.2 g/dl (14.0-18.0); LYMPHOCYTES # 0.9 10^3/ul (0.8-2.9); LYMPHOCYTES % 13.4 % (15.0-51.0); MEAN CORPUSCULAR HEMOGLOBIN 31.5 pg (29.0-33.0); MEAN CORPUSCULAR HGB CONC 35.1 g/dl (32.0-37.0); MEAN CORPUSCULAR VOLUME 89.8 fl (82.0-101.0); MEAN PLATELET VOLUME 10.6 fl (7.4-10.4); MONOCYTES % 14.4 % (0.0-11.0); NEUTROPHIL # 4.7 10^3/ul (1.6-7.5); NEUTROPHILS % 68.8 % (39.0-77.0); PLATELET COUNT 128 10^3/UL (140-415); RED BLOOD COUNT 3.24 10^6/ul (4.70-6.10); RED CELL DISTRIBUTION WIDTH 17.2 % (11.5-14.5)
[2018-04-07 06:24] LABS: WHITE BLOOD COUNT 6.9 10^3/ul (4.8-10.8)
[2018-04-07 07:09] LABS: AMMONIA 101 umol/l (9-30)
[2018-04-07 07:13] LABS: ANION GAP 17 (8-16); BLOOD UREA NITROGEN 12 mg/dl (7-20); CALCIUM 10.7 mg/dl (8.4-10.2); CARBON DIOXIDE 12 mmol/L (21-31); CHLORIDE 111 mmol/L (97-110); CREATININE 0.53 mg/dl (0.61-1.24); GLUCOSE 116 mg/dl (70-220); MAGNESIUM 1.9 mg/dl (1.7-2.5); PHOSPHORUS 2.8 mg/dl (2.5-4.9); POTASSIUM 4.7 mmol/L (3.5-5.1); SODIUM 135 mmol/L (135-144)
[2018-04-07] MEDS: INSULIN ASPART [NOVOLOG] 3 ML PEN SC ×4 (07:57→20:45)
[2018-04-07] MEDS: EZETIMIBE 10 MG TAB PO (08:29)
[2018-04-07] MEDS: CLOPIDOGREL 75 MG TAB PO (08:29)
[2018-04-07] MEDS: PROPRANOLOL 10 MG TAB PO ×2 (08:29→20:25)
[2018-04-07] MEDS: ONDANSETRON 4 MG INJ IV (08:33)
[2018-04-07] MEDS: RIFAXIMIN 550 MG TAB PO ×2 (08:33→20:25)
[2018-04-07] MEDS: LACTULOSE 30ML CUP PO ×2 (13:56→17:26)
[2018-04-07 15:01] LABS: CREATININE, RANDOM URINE 16 mg/dL (20-370); MICROALBUMIN 0.3 mg/dL; MICROALBUMIN/CREATININE RATIO 19 (<30)
[2018-04-07] MEDS: INSULIN DETEMIR [LEVEMIR] (100 UNITS/ML) SYG SC (20:45)
[2018-04-08] MEDS: LACTULOSE 30ML CUP PO ×4 (00:45→17:23)
[2018-04-08] MEDS: ACCU-CHEK XX (02:00)
[2018-04-08] MEDS: INSULIN ASPART [NOVOLOG] 3 ML PEN SC ×7 (02:43→20:11)
[2018-04-08] MEDS: PANTOPRAZOLE (EC) 40 MG TAB PO ×2 (06:17→17:25)
[2018-04-08 06:37] LABS: ADD MAN DIFF? NO
[2018-04-08 06:43] LABS: WHITE BLOOD COUNT 9.2 10^3/ul (4.8-10.8)
[2018-04-08 06:43] LABS: ABNORMAL IP MESSAGE 1; BASOPHIL # 0.1 10^3/ul (0.0-0.1); BASOPHILS % 0.5 % (0.0-2.0); EOSINOPHILS % 0.1 % (0.0-7.0); LYMPHOCYTES # 0.5 10^3/ul (0.8-2.9); LYMPHOCYTES % 5.6 % (15.0-51.0); MEAN CORPUSCULAR HEMOGLOBIN 32.2 pg (29.0-33.0); MEAN CORPUSCULAR HGB CONC 35.3 g/dl (32.0-37.0); MEAN CORPUSCULAR VOLUME 91.2 fl (82.0-101.0); MEAN PLATELET VOLUME 10.4 fl (7.4-10.4); MONOCYTE # 1.2 10^3/ul (0.3-0.9); MONOCYTES % 13.1 % (0.0-11.0); NEUTROPHIL # 7.3 10^3/ul (1.6-7.5); NEUTROPHILS % 79.4 % (39.0-77.0); PLATELET COUNT 112 10^3/UL (140-415); POSITIVE DIFF @See below; RED BLOOD COUNT 3.73 10^6/ul (4.70-6.10)
[2018-04-08 07:01] LABS: AMMONIA 56 umol/l (9-30)
[2018-04-08 07:02] LABS: ALANINE AMINOTRANSFERASE 81 IU/L (13-69); ALBUMIN 4.4 g/dl (3.3-4.9); ALBUMIN/GLOBULIN RATIO 1.51; ALKALINE PHOSPHATASE 162 IU/L (42-121); ANION GAP 19 (8-16); ASPARTATE AMINO TRANSFERASE 125 IU/L (15-46); BILIRUBIN,INDIRECT 2.4 mg/dl (0-1.1); BILIRUBIN,TOTAL 2.4 mg/dl (0.2-1.3); BLOOD UREA NITROGEN 20 mg/dl (7-20); CALCIUM 10.9 mg/dl (8.4-10.2); CARBON DIOXIDE 14 mmol/L (21-31); CHLORIDE 106 mmol/L (97-110); CREATININE 0.75 mg/dl (0.61-1.24); GLUCOSE 270 mg/dl (70-220); POTASSIUM 5.5 mmol/L (3.5-5.1); SODIUM 133 mmol/L (135-144); TOTAL PROTEIN 7.3 g/dl (6.1-8.1)
[2018-04-08 07:11] LABS: MAGNESIUM 2.1 mg/dl (1.7-2.5)
[2018-04-08 07:11] LABS: PHOSPHORUS 3.5 mg/dl (2.5-4.9)
[2018-04-08] MEDS: CLOPIDOGREL 75 MG TAB PO (09:03)
[2018-04-08] MEDS: EZETIMIBE 10 MG TAB PO (09:04)
[2018-04-08] MEDS: RIFAXIMIN 550 MG TAB PO ×2 (09:05→20:08)
[2018-04-08] MEDS: PROPRANOLOL 10 MG TAB PO ×2 (09:05→21:00)
[2018-04-08] MEDS: FUROSEMIDE 20 MG TAB PO (09:05)
[2018-04-08] MEDS: morphine LIQ (10 MG/5 ML) CUP PO ×3 (09:06→20:35)
[2018-04-08] MEDS: INSULIN DETEMIR [LEVEMIR] (100 UNITS/ML) SYG SC (20:07)
[2018-04-09] MEDS: LACTULOSE 30ML CUP PO ×4 (00:53→17:14)
[2018-04-09] MEDS: morphine LIQ (10 MG/5 ML) CUP PO ×3 (01:01→21:29)
[2018-04-09] MEDS: ACCU-CHEK XX (02:56)
[2018-04-09] MEDS: INSULIN ASPART [NOVOLOG] 3 ML PEN SC ×8 (03:22→21:26)
[2018-04-09 06:16] LABS: ADD MAN DIFF? NO
[2018-04-09 06:19] LABS: ABNORMAL IP MESSAGE 1; BASOPHIL # 0.1 10^3/ul (0.0-0.1); BASOPHILS % 0.7 % (0.0-2.0); EOSINOPHILS # 0.2 10^3/ul (0.0-0.5); EOSINOPHILS % 1.6 % (0.0-7.0); HEMATOCRIT 30.6 % (42.0-52.0); HEMOGLOBIN 10.7 g/dl (14.0-18.0); LYMPHOCYTES # 1.2 10^3/ul (0.8-2.9); LYMPHOCYTES % 11.8 % (15.0-51.0); MEAN CORPUSCULAR HEMOGLOBIN 31.9 pg (29.0-33.0); MEAN CORPUSCULAR VOLUME 91.3 fl (82.0-101.0); MEAN PLATELET VOLUME 10.7 fl (7.4-10.4); MONOCYTE # 1.8 10^3/ul (0.3-0.9); MONOCYTES % 17.2 % (0.0-11.0); NEUTROPHIL # 6.9 10^3/ul (1.6-7.5); NEUTROPHILS % 67.4 % (39.0-77.0); PLATELET COUNT 105 10^3/UL (140-415); POSITIVE DIFF @See below; RED BLOOD COUNT 3.35 10^6/ul (4.70-6.10); RED CELL DISTRIBUTION WIDTH 16.8 % (11.5-14.5)
[2018-04-09 06:19] LABS: WHITE BLOOD COUNT 10.2 10^3/ul (4.8-10.8)
[2018-04-09] MEDS: PANTOPRAZOLE (EC) 40 MG TAB PO ×2 (06:22→17:14)
[2018-04-09 06:45] LABS: MAGNESIUM 2.1 mg/dl (1.7-2.5)
[2018-04-09 06:45] LABS: PHOSPHORUS 3.3 mg/dl (2.5-4.9)
[2018-04-09 06:49] LABS: ANION GAP 18 (8-16); BLOOD UREA NITROGEN 21 mg/dl (7-20); CALCIUM 9.9 mg/dl (8.4-10.2); CARBON DIOXIDE 16 mmol/L (21-31); CHLORIDE 105 mmol/L (97-110); CREATININE 0.67 mg/dl (0.61-1.24); GLUCOSE 261 mg/dl (70-220); POTASSIUM 4.8 mmol/L (3.5-5.1); SODIUM 134 mmol/L (135-144)
[2018-04-09] MEDS: RIFAXIMIN 550 MG TAB PO ×2 (08:26→20:39)
[2018-04-09] MEDS: CLOPIDOGREL 75 MG TAB PO (08:26)
[2018-04-09] MEDS: FUROSEMIDE 20 MG TAB PO (08:26)
[2018-04-09] MEDS: EZETIMIBE 10 MG TAB PO (08:27)
[2018-04-09] MEDS: PROPRANOLOL 10 MG TAB PO ×2 (09:00→20:40)
[2018-04-09] MEDS: SPIRONOLACTONE 50 MG TAB PO (20:41)
[2018-04-09] MEDS: INSULIN DETEMIR [LEVEMIR] (100 UNITS/ML) SYG SC (21:27)
[2018-04-10] MEDS: LACTULOSE 30ML CUP PO ×2 (00:51→06:37)
[2018-04-10] MEDS: ACCU-CHEK XX (02:00)
[2018-04-10] MEDS: INSULIN ASPART [NOVOLOG] 3 ML PEN SC ×3 (02:00→08:36)
[2018-04-10 05:29] LABS: ADD MAN DIFF? NO
[2018-04-10 05:35] LABS: WHITE BLOOD COUNT 11.4 10^3/ul (4.8-10.8)
[2018-04-10 05:35] LABS: ABNORMAL IP MESSAGE 1; BASOPHIL # 0.1 10^3/ul (0.0-0.1); BASOPHILS % 0.7 % (0.0-2.0); EOSINOPHILS # 0.2 10^3/ul (0.0-0.5); HEMATOCRIT 30.4 % (42.0-52.0); HEMOGLOBIN 10.6 g/dl (14.0-18.0); LYMPHOCYTES # 1.2 10^3/ul (0.8-2.9); LYMPHOCYTES % 10.2 % (15.0-51.0); MEAN CORPUSCULAR HEMOGLOBIN 31.7 pg (29.0-33.0); MEAN CORPUSCULAR HGB CONC 34.9 g/dl (32.0-37.0); MEAN PLATELET VOLUME 10.5 fl (7.4-10.4); MONOCYTE # 1.7 10^3/ul (0.3-0.9); MONOCYTES % 14.9 % (0.0-11.0); NEUTROPHIL # 8.1 10^3/ul (1.6-7.5); NEUTROPHILS % 71.1 % (39.0-77.0); PLATELET COUNT 126 10^3/UL (140-415); POSITIVE DIFF @See below; RED BLOOD COUNT 3.34 10^6/ul (4.70-6.10)
[2018-04-10 05:54] LABS: AMMONIA 67 umol/l (9-30)
[2018-04-10 06:03] LABS: ALANINE AMINOTRANSFERASE 105 IU/L (13-69); ALBUMIN 3.1 g/dl (3.3-4.9); ALBUMIN/GLOBULIN RATIO 0.96; ALKALINE PHOSPHATASE 173 IU/L (42-121); ANION GAP 16 (8-16); ASPARTATE AMINO TRANSFERASE 151 IU/L (15-46); BILIRUBIN,INDIRECT 1.6 mg/dl (0-1.1); BILIRUBIN,TOTAL 1.6 mg/dl (0.2-1.3); BLOOD UREA NITROGEN 26 mg/dl (7-20); CALCIUM 9.8 mg/dl (8.4-10.2); CARBON DIOXIDE 18 mmol/L (21-31); CHLORIDE 106 mmol/L (97-110); CREATININE 0.63 mg/dl (0.61-1.24); GLUCOSE 205 mg/dl (70-220); POTASSIUM 5.1 mmol/L (3.5-5.1); SODIUM 135 mmol/L (135-144); TOTAL PROTEIN 6.3 g/dl (6.1-8.1)
[2018-04-10] MEDS: PANTOPRAZOLE (EC) 40 MG TAB PO (06:37)
[2018-04-10 06:40] LABS: MAGNESIUM 2.2 mg/dl (1.7-2.5)
[2018-04-10 06:40] LABS: PHOSPHORUS 3.9 mg/dl (2.5-4.9)
[2018-04-10] MEDS: FUROSEMIDE 20 MG TAB PO (09:00)
[2018-04-10] MEDS: PROPRANOLOL 10 MG TAB PO (09:00)
[2018-04-10] MEDS: EZETIMIBE 10 MG TAB PO (09:18)
[2018-04-10] MEDS: CLOPIDOGREL 75 MG TAB PO (09:18)
[2018-04-10] MEDS: RIFAXIMIN 550 MG TAB PO (09:19)
== END 2018-04-10 10:54 | disposition left against medical advice (07) | DRG 442 ==
LOC: E/R 01:00 → ICU 04:42 → 6WM 18:14
DX: K72.00 Acute and subacute hepatic failure without coma (principal); E87.2 Acidosis; R65.10 Systemic inflammatory response syndrome (SIRS) of non-infectious origin without acute organ dysfunction; E87.1 Hypo-osmolality and hyponatremia; K86.1 Other chronic pancreatitis; D68.9 Coagulation defect, unspecified; I25.10 Atherosclerotic heart disease of native coronary artery without angina pectoris; K70.30 Alcoholic cirrhosis of liver without ascites; R91.1 Solitary pulmonary nodule; I10 Essential (primary) hypertension; E11.43 Type 2 diabetes mellitus with diabetic autonomic (poly)neuropathy; K31.84 Gastroparesis; E87.5 Hyperkalemia; K80.20 Calculus of gallbladder without cholecystitis without obstruction; D64.9 Anemia, unspecified; E78.5 Hyperlipidemia, unspecified; Z79.4 Long term (current) use of insulin; Z95.1 Presence of aortocoronary bypass graft; Z95.5 Presence of coronary angioplasty implant and graft; Z87.891 Personal history of nicotine dependence
CPT/HCPCS: 36415; 36600; 70450; 71045; 74176; 78264; 80048; 80053; 80061; 81001; 81003; 82043; 82140; 82150; 82533; 82803; 82962; 83036; 83605; 83690; 83735; 83930; 83935; 84100; 84155; 84300; 84439; 84443; 84484; 85025; 85610; 85730; 87040; 87081; 93005; 96374; 96375; 99285-25